=== PATIENT | male | born 1980 | race Caucasian/White ===

== ENCOUNTER 2017-05-06 08:33 | Inpatient (IN) | payer OTHER ==
[2017-05-06] MEDS ORDERED: DEXAMETHASONE 4 MG/ML VIAL IVP ONE (09:00)
[2017-05-06] MEDS ORDERED: HALOPERIDOL LACT 5 MG/ML INJ IVP ONE ×2 (09:00→09:11)
[2017-05-06] MEDS ORDERED: NS 1,000 ML IV ONE ×2 (09:03→09:06)
--- NOTE | 2017-05-06 09:05 | EDPHY ---
H & P Stated Complaint: neck pain and headache this am Time Seen by Provider: 05/06/17 08:51 HPI/ROS: Chief Complaint: Headache HPI: 36-year-old male with no he history of headaches woke this morning with a bifrontal headache and some pain in the right side of his neck. Patient took some Tylenol went back to bed. About an hour woke up with a headache worse. About a 9/10. It is the worst headache of his life. It started when he was sleeping so this not know high rapidly started. Has had some nausea and vomited once. Does have some photophobia. Also bronchitis until cold sweat. No recent illness. 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 Did not have any headache yesterday afternoon. No fevers. No recent falls or trauma. No hearing or vision changes. ROS: 10 point Review of Systems is negative except as noted in the HPI. PMH: Polycystic kidney disease Social History: No smoking, chews tobacco, occasional alcohol, occasional marijuana Family History: Mom has a history of migraine headaches Physical Exam: Gen: Awake, Alert, No Distress HEENT: Nose: no rhinorrhea Eyes: PERRLA, EOMI Mouth: Moist mucosa Neck: Supple, no JVD, no meningismus Chest: nontender, lungs clear to auscultation Heart: S1, S2 normal, no murmur Abd: Soft, non-tender, no guarding Back: no CVA tenderness, no midline tenderness Ext: no edema, non-tender Skin: no rash Neuro: CN II-XII intact, Sensation grossly intact, Strength 5/5 in bilateral upper and lower extremities - Personal History Current Tetanus/Diphtheria Vaccine: Unsure Current Tetanus Diphtheria and Acellular Pertussis (TDAP): Unsure - Medical/Surgical History Hx Renal Disease: Yes Other PMH: Polycystic kidney disease - Social History Smoking Status: Former smoker Constitutional: Initial Vital Signs Temperature (C) 36.5 C 05/06/17 08:46 Heart Rate 66 05/06/17 08:46 Respiratory Rate 16 05/06/17 08:46 Blood Pressure 153/102 H 05/06/17 08:46 O2 Sat (%) 98 05/06/17 08:46 O2 Delivery Mode Room Air Allergies/Adverse Reactions: No Known Allergies Allergy (Verified 05/06/17 08:48) Home Medications: Medication Instructions Recorded None 12/13/09 Medical Decision Making - Diagnostics Imaging Results: Imaging Impressions Head CT 05/06/17 09:00 Impression: Acute subarachnoid hemorrhage epicentered at the central-right paracentral aspect of the pentagonal plate cistern and also extending into the right sylvian fissure, with some mild effacement of the right cerebral sulci, but no evidence of subfalcine or transtentorial herniation. Findings were discussed with Abisai Gonzalez MD at 9:37 am, on 05/06/2017. Imaging: Discussed imaging studies w/ faculty i on call medical assistant Radiologist ED Course/Re-evaluation: 36-year-old male with the worst headache he has ever had. Does not have any trauma or any other predisposing factors. The nature of an intensity is headache is somewhat concerning. He was using her sparing painting yesterday but the headache did not developed until this morning. Will obtain CT scan. Patient has polycystic kidney disease will avoid nonsteroidals at this time. I have ordered Benadryl, Haldol and diphenhydramine, IV fluids and will reassess. CT head shows subarachnoid hemorrhage. Neurosurgery has been paged. Will order CT angiogram of his head. Patient's blood pressure is currently 124/90 Case discussed with JUANCARLOS Louis for Dr. Arias, neurosurgery. They would like the patient transferred to the ICU [facility] directly. With patient to be admitted under the hospitalist service. They would like me to order CT angiogram of the head here. Hospitalist has been paged. Case discussed with Judith Riddle, hospitalist. Patient will be admitted directly to the ICU under Dr. Riley. Patient's blood pressure is 134 systolic at this time. He is no longer nauseated. Order some morphine for his headache. He will go directly to the ICU after CT angiogram here. Critical Care Time: I spent a total of 33 minutes of critical care time in obtaining history, performing a physical exam, bedside monitoring of interventions, collecting and interpreting tests and discussion with consultants but not including time spent performing procedures. - Data Points Laboratory Results: Laboratory Results 05/06/17 09:33 05/06/17 05/06/17 05/06/17 09:33 09:33 09:33 WBC 7.12 10^3/uL 10^3/uL (3.80-9.50) RBC 5.08 10^6/uL 10^6/uL (4.40-6.38) Hgb 15.8 g/dL g/dL (13.7-17.5) Hct 44.2 % % (40.0-51.0) MCV 87.0 fL fL (81.5-99.8) MCH 31.1 pg pg (27.9-34.1) MCHC 35.7 g/dL g/dL (32.4-36.7) RDW 11.3 % L % (11.5-15.2) Plt Count 238 10^3/uL 10^3/uL (150-400) MPV 10.5 fL fL (8.7-11.7) Neut % (Auto) 81.8 % H % (39.3-74.2) Lymph % (Auto) 12.6 % L % (15.0-45.0) [place] % (Auto) 4.5 % % (4.5-13.0) Eos % (Auto) 0.4 % L % (0.6-7.6) Baso % (Auto) 0.4 % % (0.3-1.7) Nucleat RBC Rel Count 0.0 % % (0.0-0.2) Absolute Neuts (auto) 5.82 10^3/uL 10^3/uL (1.70-6.50) Absolute Lymphs (auto) 0.90 10^3/uL L 10^3/uL (1.00-3.00) Absolute Monos (auto) 0.32 10^3/uL 10^3/uL (0.30-0.80) Absolute Eos (auto) 0.03 10^3/uL 10^3/uL (0.03-0.40) Absolute Basos (auto) 0.03 10^3/uL 10^3/uL (0.02-0.10) Absolute Nucleated RBC 0.00 10^3/uL 10^3/uL (0-0.01) Immature Gran % 0.3 % % (0.0-1.1) Immature Gran # 0.02 10^3/uL 10^3/uL (0.00-0.10) PT Pending INR Pending APTT Pending Sodium Pending Potassium Pending Chloride Pending Carbon Dioxide Pending Anion Gap Pending BUN Pending Creatinine Pending Estimated GFR Pending Glucose Pending Calcium Pending Medications Given: Discontinued Medications Dexamethasone (Decadron Injection) 4 mg IVP EDNOW ONE Stop: 05/06/17 09:01 Last Admin: 05/06/17 09:06 Dose: 4 mg Diphenhydramine HCl (Benadryl Injection) 50 mg IVP EDNOW ONE Stop: 05/06/17 09:01 Last Admin: 05/06/17 09:08 Dose: 50 mg Haloperidol Lactate (Haldol Injection) 2.5 mg IVP EDNOW ONE Stop: 05/06/17 09:12 Last Admin: 05/06/17 09:14 Dose: 2.5 mg Sodium Chloride (Ns) 1,000 mls @ 0 mls/hr IV ONCE ONE PRN Reason: Wide Open Stop: 05/06/17 09:04 Last Admin: 05/06/17 09:00 Dose: 1,000 mls Departure - Departure Disposition: [facility] Inpatient Acute Clinical Impression: Subarachnoid hemorrhage Condition: Serious
[2017-05-06 09:41] LABS: % IMMATURE GRANULYOCYTES 0.3 % (0.0-1.1); ABSOLUTE IMMATURE GRANULOCYTES 0.02 10^3/uL (0.00-0.10); ADD DIFF? NO; ADD MORPH? NO; ADD SCAN? NO; ATYPICAL LYMPHOCYTE FLAG 10 (0-99); FRAGMENT RBC FLAG 0 (0-99); HEMATOCRIT 44.2 % (40.0-51.0); HEMOGLOBIN 15.8 g/dL (13.7-17.5); LEFT SHIFT FLG 0 (0-99); LIPEMIA HEMOLYSIS FLAG 90 (0-99); MEAN CELL HEMOGLOBIN 31.1 pg (27.9-34.1); MEAN CELL HEMOGLOBIN CONCENTR. 35.7 g/dL (32.4-36.7); MEAN PLATELET VOLUME 10.5 fL (8.7-11.7); PLATELET CLUMPS FLAG 0 (0-99); PLATELET COUNT 238 10^3/uL (150-400); RED BLOOD CELL COUNT 5.08 10^6/uL (4.40-6.38); RED CELL DISTRIBUTION WIDTH 11.3 % (11.5-15.2)
[2017-05-06 09:52] LABS: APTT 24.2 SEC (23.0-38.0); INR 1.01 (0.83-1.16)
[2017-05-06 09:53] LABS: ANION GAP 11 mEq/L (8-16); CARBON DIOXIDE 21 mEq/l (22-31); CHLORIDE 106 mEq/L (97-110); GLOMERULAR FILTRATION RATE > 60; GLUCOSE 139 mg/dL (70-100); POTASSIUM 4.7 mEq/L (3.5-5.2); SODIUM 138 mEq/L (134-144)
[2017-05-06] MEDS ORDERED: IOPAMIDOL (ISOVUE 370) 100 ML BTL IV ONE (09:56)
[2017-05-06] MEDS ORDERED: PROMETHAZINE HCL 25 MG TAB PO PRN (11:49)
[2017-05-06] MEDS ORDERED: D5W 1/2 NS 1,000 ML IV SCH (12:00)
[2017-05-06] MEDS ORDERED: PANTOPRAZOLE SODIUM 40 MG TAB PO PRN (13:03)
--- NOTE | 2017-05-06 13:03 | PDGENHP ---
History and Physical - Chief Complaint Acute headache - History of Present Illness Primary care provider: Dr. Genaro Vazquez HPI: 36-year-old male presenting with acute headache located in the bilateral frontal area, right greater than left, with associated right neck pain, nausea, 1 episode vomiting, photophobia, with onset of symptoms on the morning of this presentation. It began suddenly, at rest, riders the patient was getting up from his bed. Duration has been persistent thereafter. The symptoms were somewhat alleviated by combination of Benadryl, Haldol, IV fluids, narcotic pain medications received at [facility]. The patient otherwise denies any paresthesias or paresis. He reports that on the day prior to presentation, he had otherwise been feeling well. He reports he drinks approximately 6 beers on the day prior to this presentation, and was using chewing tobacco. History Information - Allergies/Home Medication List Allergies/Adverse Reactions: No Known Allergies Allergy (Verified 05/06/17 08:48) Home Medications: Acetaminophen [Tylenol ES 500 mg (*)] 500 mg PO DAILY PRN 05/06/17 [Last Taken 05/06/17] Omeprazole [Prilosec 20 mg] 20 mg PO DAILY PRN 05/06/17 [Last Taken 05/05/17] I have personally reviewed and updated: family history, medical history, social history, surgical history - Past Medical History Additional medical history: Polycystic kidney disease with resultant hypertension, not presently on KIMBERLY-inhibitor - Surgical History Reports: no pertinent surgical hx - Family History Additional family history: Father and uncle with polycystic kidney disease, both of which on hemodialysis - Social History Smoking Status: Former smoker Tobacco Use: Chew (Daily) Alcohol Use: Other (6 pack regularly, never experienced acute alcohol withdrawal ) Drug Use: Marijuana Additional social history: Works in painting Review of Systems ROS: 10pt was reviewed & negative except for what was stated in HPI & below Neurological: Reports: headache Physical Exam Temp Pulse Resp BP Pulse Ox 36.5 C 60 16 140/92 H 96 05/06/17 08:46 05/06/17 12:27 05/06/17 12:27 05/06/17 12:27 05/06/17 12:27 Constitutional: no apparent distress, appears nourished, not in pain Eyes: PERRL, anicteric sclera, EOMI Ears, Nose, Mouth, Throat: moist mucous membranes, hearing normal, ears appear normal, no oral mucosal ulcers Cardiovascular: regular rate and rhythym, no murmur, rub, or gallop, No edema Respiratory: no respiratory distress, no rales or rhonchi, clear to auscultation Gastrointestinal: normoactive bowel sounds, soft, non-tender abdomen, no palpable masses Genitourinary: no bladder fullness, no bladder tenderness, no renal bruits Skin: other (Many tattoos, no vesicular lesion over his face her forehead) Neurologic: AAOx3, sensation intact bilaterally, CN II-XII Intact, No weakness ( Motor strength 5/5 bilateral upper and lower extremity) Psychiatric: interacting appropriately, not anxious, not encephalopathic, thought process linear Lab Data & Imaging Review 05/06/17 09:33 05/06/17 09:33 WBC 7.12 10^3/uL (3.80-9.50) 05/06/17 09:33 RBC 5.08 10^6/uL (4.40-6.38) 05/06/17 09:33 Hgb 15.8 g/dL (13.7-17.5) 05/06/17 09:33 Hct 44.2 % (40.0-51.0) 05/06/17 09:33 MCV 87.0 fL (81.5-99.8) 05/06/17 09:33 MCH 31.1 pg (27.9-34.1) 05/06/17 09:33 MCHC 35.7 g/dL (32.4-36.7) 05/06/17 09:33 RDW 11.3 % (11.5-15.2) L 05/06/17 09:33 Plt Count 238 10^3/uL (150-400) 05/06/17 09:33 MPV 10.5 fL (8.7-11.7) 05/06/17 09:33 Neut % (Auto) 81.8 % (39.3-74.2) H 05/06/17 09:33 Lymph % (Auto) 12.6 % (15.0-45.0) L 05/06/17 09:33 [place] % (Auto) 4.5 % (4.5-13.0) 05/06/17 09:33 Eos % (Auto) 0.4 % (0.6-7.6) L 05/06/17 09:33 Baso % (Auto) 0.4 % (0.3-1.7) 05/06/17 09:33 Nucleat RBC Rel Count 0.0 % (0.0-0.2) 05/06/17 09:33 Absolute Neuts (auto) 5.82 10^3/uL (1.70-6.50) 05/06/17 09:33 Absolute Lymphs (auto) 0.90 10^3/uL (1.00-3.00) L 05/06/17 09:33 Absolute Monos (auto) 0.32 10^3/uL (0.30-0.80) 05/06/17 09:33 Absolute Eos (auto) 0.03 10^3/uL (0.03-0.40) 05/06/17 09:33 Absolute Basos (auto) 0.03 10^3/uL (0.02-0.10) 05/06/17 09:33 Absolute Nucleated RBC 0.00 10^3/uL (0-0.01) 05/06/17 09:33 Immature Gran % 0.3 % (0.0-1.1) 05/06/17 09:33 Immature Gran # 0.02 10^3/uL (0.00-0.10) 05/06/17 09:33 PT 13.0 SEC (12.0-15.0) 05/06/17 09:33 INR 1.01 (0.83-1.16) 05/06/17 09:33 APTT 24.2 SEC (23.0-38.0) 05/06/17 09:33 Sodium 138 mEq/L (134-144) 05/06/17 09:33 Potassium 4.7 mEq/L (3.5-5.2) 05/06/17 09:33 Chloride 106 mEq/L (97-110) 05/06/17 09:33 Carbon Dioxide 21 mEq/l (22-31) L 05/06/17 09:33 Anion Gap 11 mEq/L (8-16) 05/06/17 09:33 BUN 16 mg/dL (7-23) 05/06/17 09:33 Creatinine 1.0 mg/dL (0.7-1.3) 05/06/17 09:33 Estimated GFR > 60 05/06/17 09:33 Glucose 139 mg/dL (70-100) H 05/06/17 09:33 Calcium 9.0 mg/dL (8.5-10.4) 05/06/17 09:33 Visualized and Interpreted imaging results: Yes Interpretation: Noncontrast head CT demonstrating small subarachnoid hemorrhage on the right side without any herniation Assessment & Plan Assessment: 36-year-old male presenting with acute subarachnoid hemorrhage in the setting of right MCA aneurysm and polycystic kidney disease Plan: 1. Subarachnoid hemorrhage. Acute, new problem this provider, further workup indicated. CT angiograms demonstrating 3.5 x 8.5 x 6 mm aneurysm at the distal M2 of the right MCA, which is the most likely cause, can be associated with polycystic kidney disease -goal systolic blood pressure less than 140, Cardene drip to maintain -q.2 hours neuro checks -discussed with Cruz Hager, neurosurgery service, he will coordinate with his staff regarding further intervention -remain NPO -IV supportive care for any ongoing symptom -close monitoring the step-down unit -will most likely follow noncontrast head CTs to ensure no worsening 2. Polycystic kidney disease. 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 with outpatient labs Diet. NPO with low rate IV fluids Prophylaxis. High risk patient, SCDs, pharmacologic contraindicated given intracranial hemorrhage Code. Full Disposition. Anticipated discharge uncertain this time, anticipated length stay greater than 48 hours warranting inpatient admission status for acute subarachnoid hemorrhage which is high risk, high medical complexity in the setting of right MCA aneurysm. I have also discussed with Judith Riddle, hospitalist provider, she has assigned the patient to me for evaluation.
[2017-05-06] MEDS ORDERED: BUPIVACAINE/EPI 0.25% 30 ML SDV ONE (13:25)
[2017-05-06] MEDS ORDERED: CHLORHEXIDINE GLUC HIBICLENS 118 ML BTL TP ONE (13:25)
[2017-05-06] MEDS ORDERED: THROMBIN (BOVINE) 20,000 UNIT VIAL TP ONE (13:25)
[2017-05-06] MEDS ORDERED: AVITENE POWDER 1 GM JAR TP ONE (13:25)
[2017-05-06] MEDS ORDERED: MANNITOL 20% 100 GM/500 ML BAG IV ONE (13:25)
[2017-05-06] MEDS ORDERED: BACITRACIN ZINC 14.2 GM OINTTUBE TP ONE (13:25)
[2017-05-06] MEDS ORDERED: INDOCYANINE GREEN 25 MG VIAL ONE (13:26)
[2017-05-06] MEDS ORDERED: GENTAMICIN SULFATE 80 MG/2 ML VIAL ONE ×2 (13:26→15:17)
[2017-05-06] MEDS ORDERED: POVIDONE-IODINE 30 GM OINTTUBE TP ONE (13:48)
--- NOTE | 2017-05-06 13:55 | PDANEPAE ---
ANE History of Present Illness 36yo M for Right MCA Aneurysm clipping ANE Past Medical History - Cardiovascular History Hx Hypertension: No - Pulmonary History Hx COPD: No Hx Oxygen in Use at Home: No - Neurologic History Neurologic History Comment: Anersym - Endocrine History Hx Diabetes: No Hypothyroid: No - Renal History Renal History Comment: Polycystic Kidney ANE Patient History - Allergies Allergies/Adverse Reactions: No Known Allergies Allergy (Verified 05/06/17 08:48) - Home Medications Home Medications: Acetaminophen [Tylenol ES 500 mg (*)] 500 mg PO DAILY PRN 05/06/17 [Last Taken 05/06/17] Omeprazole [Prilosec 20 mg] 20 mg PO DAILY PRN 05/06/17 [Last Taken 05/05/17] - Smoking Hx Smoking Status: Former smoker - Alcohol Use Alcohol Use: Other (6 pack regularly, never experienced acute alcohol withdrawal ) ANE Labs/Vital Signs - Labs Result Diagrams: 05/06/17 09:33 05/06/17 09:33 - Vital Signs Blood Pressure: 140/92 Heart Rate: 60 Respiratory Rate: 16 O2 Sat (%): 96 Height: 193.04 cm Weight: 101 kg ANE Physical Exam - Airway Neck exam: FROM Mallampati Score: Class 2 Mouth exam: normal dental/mouth exam - Pulmonary Pulmonary: clear to auscultation - Cardiovascular Cardiovascular: regular rate and rhythym - ASA Status ASA Status: II, E
[2017-05-06] MEDS ORDERED: HYDROmorphONE/DILAUDID 1 MG/ML SYR IVP PRN (13:56)
[2017-05-06] MEDS ORDERED: NALOXONE HCL 0.4 MG/ML INJ IVP PRN ×2 (13:56→16:13)
[2017-05-06] MEDS ORDERED: fentaNYL 100 MCG/2 ML INJ IVP PRN ×3 (13:56→16:13)
[2017-05-06] MEDS ORDERED: ONDANSETRON 4 MG/2 ML VIAL IVP PRN (13:56)
[2017-05-06] MEDS ORDERED: fentaNYL 100 MCG/2 ML INJ ONE (14:14)
[2017-05-06] MEDS ORDERED: PROPOFOL 200 MG/20 ML VIAL ONE (14:14)
[2017-05-06] MEDS ORDERED: CEFAZOLIN 2 GM/DEXTROSE/100 ML BAG IV ONE (14:14)
[2017-05-06] MEDS ORDERED: levETIRAcetam 750 MG in NS 100 ML IV ONE (14:15)
[2017-05-06] MEDS ORDERED: ROCURONIUM 50 MG/5 ML VIAL ONE ×2 (14:15→15:06)
[2017-05-06] MEDS: niMODipine 30 MG CAP PO SCH ×3 (14:19→22:03)
[2017-05-06] MEDS ORDERED: SURGIFLO MATRIX KIT WITH THROMBIN TP ONE (14:46)
--- NOTE | 2017-05-06 14:50 | GCON ---
[f rep st] CONSULTATION CONSULTATION HISTORY AND PHYSICAL. CHIEF COMPLAINT: Acute onset of headache, seen at [facility], diagnosed with acute subarachnoid hemorrhage. Transferred to [facility] for further evaluation and care. HISTORY OF PRESENT ILLNESS: The patient is a 36-year-old male who presented this a.m. with a severe acute onset headache that was located in the bifrontal area, right side greater than left. He had some associated right-sided neck pain, some significant nausea and vomiting as well as photophobia. He states the onset of the symptoms was this a.m. It began suddenly at rest. It increased with getting up from bed. The symptoms were somewhat alleviated with some Benadryl, Haldol, IV fluids, and narcotic pain medications that were received at [facility]. Otherwise, he denied any other symptoms such as numbness, tingling, weakness, or paresthesias. No problems with his speech or mentation. He had a CT scan that showed a traumatic subarachnoid hemorrhage and was transferred over to [facility] [place], and he underwent a CTA which showed a right MCA aneurysm. The patient was seen and evaluated both by myself and Dr. Marlow in the ICU in room 246 at 1300. PAST MEDICAL HISTORY: 1. Polycystic kidney disease. 2. Hypertension. PAST SURGICAL HISTORY: None listed. MEDICATIONS: 1. Tylenol Extra Strength 500 mg p.o. daily as needed. 2. Prilosec 20 mg p.o. daily as needed. ALLERGIES: No known drug allergies. FAMILY HISTORY: Father and uncle with polycystic kidney disease, both of which on hemodialysis. SOCIAL HISTORY: Patient is a former smoker. He does use chewing tobacco daily. He does drink alcohol and uses marijuana. He works in a painting industry. IMMUNIZATIONS: Reported up to date. TRAVEL: No recent travel. REVIEW OF SYSTEMS: Complete review of systems noted in conjunction with above. Noted for the following: Positive for headache. No diplopia, no blurred vision. No loss of visual field. No hearing loss, tinnitus, or vertigo. PULMONARY: No cough, sputum production, hemoptysis, or dyspnea. No pleuritic chest pain. CARDIAC: No chest pain or pressure. No palpitations. GI: No weight loss or gain. No nausea, vomiting, or diarrhea other than noted as above. : Deferred. NEUROLOGIC: The patient denies any syncope, seizures, vertigo, paresthesias, or weakness. PSYCHIATRIC: No suicidal ideality or homicidality. PHYSICAL EXAM: GENERAL: This is an awake, alert, oriented male, in no acute distress. VITAL SIGNS: Most recent blood pressure 140/92, heart rate of 60, MAP of 108, 96% on room air, 16 respirations. Temp this a.m. was 36.5. HEENT: Head is normocephalic, atraumatic. Pupils are equal, round, reactive to light. EOMIs intact. Full visual marquez by confrontation. Ears are patent. Nose is patent. NECK: Soft and supple. No midline tenderness. Full range of motion in flexion, extension, lateral bending, rotation. RESPIRATORY AND CARDIAC: Deferred. ABDOMEN: Soft, nontender. No peritoneal signs. AND RECTAL: Deferred. NEURO: Patient is awake, alert, oriented to name, place, location, date, time, and situation. Memory is intact to immediate past and current events. Speech: No aphasia, dysarthria, dysphonia. Cranial nerves 2- 12 grossly intact. Motor: Patient has 5/5 strength in all muscle groups bilateral upper and lower extremities to include deltoids, biceps, triceps, brachioradialis, wrist flexors and extensors, intravenous therapy nurse intrinsic fingers, iliopsoas , quadriceps, hamstring, plantar flexion, dorsiflexion, EHL testing. Sensation is grossly intact to light touch. Negative straight leg raise. Negative MADHU test. Reflexes are 2+ upper and lower extremities. MEDICAL DECISION MAKING/DIAGNOSTIC STUDIES: Laboratory tests obtained on 2016, show a white count of 7.12 with an H and H 15.8 and 44.2 with a platelet count of 238. Coags 05/06/2017, show a PT of 13.0, INR of 1.01, and a PTT of 24.2. Chemistry on 05/06/2017: Sodium 138, potassium 4.7, chloride 106, CO2 of 21, BUN 16, creatinine 1.0, and glucose of 139. CT scan of the head [facility] 05/06/2017 , at 0900 shows an acute subarachnoid hemorrhage in the central right paracentral aspect of the pentagonal plate cistern and also extending to the right sylvian fissure. There is some mild effacement of the right cerebral sulci. No evidence of subfalcine herniation was noted. A CTA obtained 2016, showed a 3.5 x 8.5 x 6.0 mm aneurysm at the level of the distal M2 segment in the right middle cerebral artery. IMPRESSION: 1. Sudden onset of headache, mainly right-sided. 2. Traumatic subarachnoid hemorrhage. 3. A 3.5 x 8.5 x 6.0 aneurysm of the distal M2 segment of the right middle cerebral artery. PLAN AND DISCUSSION: The patient was seen and evaluated both by myself and Dr. Marlow. Recommendation for surgical intervention was given. The patient understands this and wishes to proceed. He was consented for a right-sided craniotomy for clipping of this M2 aneurysm. He was started on nimodipine, Keppra. We will work on blood pressure control prior to surgery and after surgery as well depending on with Dr. Baeza's recommendations would be. The patient is awake, alert, and oriented. He understands and agrees. We talked about the risks of surgery such as injury to blood vessels, nerves, risk of infection, postoperative complications, coma, , paralysis, stroke, blood clots, heart attacks, pneumonia, need for further surgery. The patient understands this as does his family. All questions and concerns were answered. /[id number]/MODL MTDD
[2017-05-06] MEDS ORDERED: REMIFENTANIL HCL 1 MG VIAL ONE ×3 (14:54→17:20)
[2017-05-06] MEDS ORDERED: PROPOFOL/EMULSION 500 MG/50 ML BOTTLE IV ONE ×3 (15:00→16:56)
[2017-05-06] MEDS ORDERED: ONDANSETRON 4 MG/2 ML VIAL ONE (15:05)
[2017-05-06] MEDS ORDERED: RANITIDINE 50 MG/2 ML VIAL ONE (15:06)
[2017-05-06] MEDS ORDERED: PHENYLEPHRINE HCL 100 MCG/ML SYR ONE (15:17)
[2017-05-06] MEDS ORDERED: PAPAVERINE HCL 60 MG/2 ML SDV ONE (16:56)
[2017-05-06] MEDS ORDERED: BISACODYL 10 MG SUPP PR PRN (17:52)
[2017-05-06] MEDS ORDERED: LACTULOSE 20 GM/30 ML UDCUP PO PRN (17:52)
[2017-05-06] MEDS ORDERED: POLYETHYLENE GLYCOL 3350 17 GM PKT PO PRN (17:52)
[2017-05-06] MEDS ORDERED: MAGNESIUM HYDROXIDE 30 ML UDCUP PO PRN (17:52)
[2017-05-06] MEDS ORDERED: *MD ORDERING ONLY-DEXAMETHASONE TAPER PO SCH (18:00)
--- NOTE | 2017-05-06 18:20 | SOAPPROG ---
SOAP Progress Note Assessment/Plan: Post Op Visit: S: Awake and alert. Pt with incisional pain O: AFVSS/PERRLA/EOMI no droop CN 2-12 grossly intact +lt touch 5/5 BUE/BLE = +cms/nv intact x 4 CDI-dressing place DONOVAN in place A/P: 36 yo male that is s/p right craniotomy for MCA clipping -orders in place -call with any questions or concerns -pt understands and agrees -pt seen by Dr Baeza 05/06/17 18:16 Objective: Vital Signs Temp Pulse Resp BP Pulse Ox 36.7 C 69 15 128/95 H 98 05/06/17 14:00 05/06/17 14:00 05/06/17 14:00 05/06/17 14:00 05/06/17 14:00 05/05/17 05/06/17 05/07/17 05:59 05:59 05:59 Intake Total 1500 Balance 1500 PT 13.0 SEC (12.0-15.0) 05/06/17 09:33 INR 1.01 (0.83-1.16) 05/06/17 09:33 ICD10 Worksheet Patient Problems: Problems Problem Status Onset Aneurysm Acute Subarachnoid hemorrhage Acute - ICD10 Problem Qualifiers (1) Aneurysm
[2017-05-06] MEDS: ONDANSETRON 4 MG/2 ML VIAL IVP PRN (18:35)
--- NOTE | 2017-05-06 18:51 | POSTANESTH ---
Post Anesthetic Evaluation Cardiovascular Status: Normal, Stable Respiratory Status: Normal, Stable Level of Consciousness/Mental Status: Can Participate in Eval, Mildly Sleepy, Arousable Pain Control: Adequate, Prn Tx Ordered Nausea/Vomiting Control: Adequate, Prn Tx Ordered Complications Possibly Related to Anesthesia: None Noted
[2017-05-06] MEDS: FAMOTIDINE 20 MG/NACL 50 ML IV SCH (19:50)
[2017-05-06] MEDS: NS W/ 20 KCl/L 1,000 ML IV SCH (19:53)
[2017-05-06] MEDS: niCARdipine/NACL 200 ML IV SCH (19:53)
[2017-05-06] MEDS: METHOCARBAMOL 750 MG TAB PO PRN (19:54)
[2017-05-06 20:36] LABS: SODIUM 135 mEq/L (134-144)
[2017-05-06] MEDS: ONDANSETRON DISINTEGRATING 4 MG TAB PO PRN (20:49)
[2017-05-06] MEDS: levETIRAcetam 750 MG in NS 100 ML IV SCH (20:57)
[2017-05-06] MEDS: SENNOSIDES/DOCUSATE SODIUM TAB PO SCH (21:53)
[2017-05-06] MEDS ORDERED: SCOPOLAMINE HYDROBROMIDE 1.5 MG PATCH TD ONE (22:30)
--- NOTE | 2017-05-07 00:02 | GOP ---
[f rep st] OPERATIVE REPORT DATE OF OPERATION: SURGEON: Pipo Baeza MD NEUROSURGEON: Pipo Baeza MD SAWMILL TALLY CLERK: Cruz Hager PA-C PREOPERATIVE DIAGNOSIS: Subarachnoid hemorrhage (Warner and Sim 2, Vences grade 3). POSTOPERATIVE DIAGNOSIS: Subarachnoid hemorrhage (Warner and Sim 2, Vences grade 3). PROCEDURE PERFORMED: 1. Right frontotemporal craniotomy. 2. 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 3. Intraoperative indocyanine green angiography with operative microscope. 4. Use of the operative microscope. FINDINGS: Successful clipping of right MCA aneurysm (ruptured). SPECIMENS: There were no specimens. ESTIMATED BLOOD LOSS: 100 cc. INDICATIONS: The patient is a 36-year-old man who awoke this morning with the worst headache of his life. He presented to a free-standing emergency department, where a CT revealed subarachnoid hemor rhage layering in the right sylvian fissure. He was transferred to [facility], where a CT angiogram was performed showing an 8 x 5 x 3 mm right MCA aneurysm with a complex shape at the MCA bifurcation. After complete discussion with the patient and his family, we elected to bring him directly for surgical clipping, given his young age and the location of the aneurysm. DESCRIPTION OF PROCEDURE: After informed consent was obtained from the patient, the patient was bro ught to the operating room, was placed in supine position on the operating table. A formal time-out was performed, identifying the patient by name, medical record number, and date of . Preopera tive antibiotics were given. The endotracheal tube was placed and general endotracheal anesthesia w as smoothly induced. The patient was given preoperative Keppra, Decadron and mannitol. The head wa s placed in Collins pins, and the head was turned slightly to the left side with the malar eminence at the most superior aspect. A standard curvilinear pterional incision was marked, and a small strip of hair was clipped along th e line of the incision. 20 cc of 0.25% Marcaine with epinephrine was infiltrated in the skin for he mostasis. The head was then prepped and draped in the normal sterile fashion. The skin incision wa s made using a 10-blade, and the subcutaneous tissues were dissected using monopolar electrocautery. Care was taken to preserve the superficial temporal artery in case that would be needed for any ki nd of bypass. Next, Wendy clips were placed for hemostasis and the extent of the incision was opene d down through the galea. The temporalis muscle and fascia was then opened in line with the incisio n, and a single myocutaneous flap was retracted anteriorly, exposing the keyhole at the frontal zygo matic process. Once we had this exposure, 3 bur holes were created in standard pterional fashion and a standard pte rional craniotomy flap was turned using the craniotome. The bleeding from the middle meningeal yulisa ry was controlled using bipolar electrocautery. The sphenoid wing was then drilled down flush with the skull base. At this point, the dura was opened in a curvilinear fashion, and flapped down towar d the skull base. The operative microscope was brought on the field, and the remainder of the proce dure was performed under high-power magnification. First, we went subtemporal and opened the optic carotid cistern, releasing some CSF. Next, we came back distally on the sylvian fissure and opened the arachnoid membrane. Once we were in the sylvian fissure, the 1st artery was identified and we followed this more proximally toward the M1. We stay ed along the temporal M2 branch, continuing our dissection down until we could locate the M1 segment . Unfortunately, the M1 segment swung very posterior in the patient; therefore, the only access to the M1 was underneath the aneurysm from the posterior aspect, which did not give us a very great loc ation for temporary clip placement. This allowed us to see the aneurysm, once we saw the junction of the temporal M2 and the M1. The an eurysm was large and somewhat sclerotic, and was completely covered by a small bit of the frontal lo be and was quite adherent to this area. It was quite complicated to carefully dissect this aneurysm , which was adherent to the frontal lobe, but we were able to free this segment of the frontal lobe. Briefly, a self-retaining retractor had to be placed to hold this knuckle of the frontal operculum out of the way. We were then able to identify the frontal M2 branch, which was carefully dissected back toward the aneurysm and its junction with the neck of the aneurysm was visualized. We then po steriorly dissected the dome of the aneurysm where the fresh clot was located, and very carefully se parated this from the frontal lobe without rupture. At this point, we could see 360 degrees around the aneurysm, and it was a quite complicated shape wi th a protrusion from the M1 and lobes anterior and posterior to the M1 as well. A curved Mizuho Sug courtney aneurysm clip was then selected, and this was placed along the superior and posterior aspects of the aneurysm, across the neck. We then inspected the aneurysm, and this clip was not crossing the lobe anterior to the M1; therefore, a fenestrated titanium Sugita aneurysm clip was then selected, a nd the fenestration was placed around the original clip at a 90-degree angle, occluding this lobe. We then again inspected the area, and there was a small dog ear at the superior and posterior aspect where we had placed the original clip, and a 2nd curved Mizuho Sugita clip was placed along the sto ne. This occluded the entire aneurysm. The Doppler was used to confirm flow in both M2s, which were flowing well. An indocyanine green ang iogram was then performed using the operative microscope, which showed good flow in both M2s, and no flow in the aneurysm dome. The dome was still slightly bulbous, however, so a 30-gauge needle was used to puncture the aneurysm dome. There was some brisk bleeding from this location, suggesting th at the aneurysm was still filling. This area of bleeding was coagulated and we then inspected the e ntire area, and there was a small area between the fenestrated clip and the 1st clip where there was a lot of filling. The fenestrated clip was adjusted, and this allowed for complete collapse of the dome. The sclerotic portion of the aneurysm, which still appeared somewhat bulbous, that was adher ent to the frontal lobe, was also punctured to be sure that this was not still filling, and it was n ot. At this point, the wound was copiously irrigated using sterile saline. A few pieces of papaverine-s oaked Gelfoam were placed over the MCA bifurcation, and left for a few minutes and then removed. Th e wound was again copiously irrigated using bacitracin irrigation. A few pieces of Surgicel were pl aced on the base of the sylvian fissure, and the dura was then closed using interrupted 4-0 Nurolon. Some Gelfoam was placed over the dural opening, and the craniotomy flap was plated back in place u FNZ titanium plates and screws. A 10 round DONOVAN drain was then placed in the submuscular spa ce, and then the temporalis muscle and fascia was closed using interrupted 2-0 Vicryl. Again, the w ound was copiously irrigated using bacitracin irrigation. The galea was closed using interrupted 2- 0 Vicryl. The skin was closed using a running 4-0 Monocryl. The hair was washed, sterile dressings were placed. The patient was awakened in the operating room where he was extubated, he was transferred to the PACU in stable condition. There were no operative complications. I was scrubbed and present for the entire procedure. FLUIDS AND URINE OUTPUT: Per the anesthesia record. COMPLICATIONS: There were no operative complications. DRAIN: A subgaleal DONOVAN. IMPLANTED DEVICES: Three titanium Lexiuho Sugita aneurysm clips. /[id number]/MODL
[2017-05-07] MEDS: niCARdipine/NACL 200 ML IV SCH ×2 (00:15→05:48)
[2017-05-07] MEDS: niMODipine 30 MG CAP PO SCH ×6 (02:04→21:18)
[2017-05-07] MEDS: oxyCODONE IR 5 MG TAB PO PRN ×4 (02:04→09:12)
[2017-05-07 04:49] LABS: % IMMATURE GRANULYOCYTES 0.2 % (0.0-1.1); ABSOLUTE IMMATURE GRANULOCYTES 0.03 10^3/uL (0.00-0.10); ADD DIFF? NO; ADD MORPH? NO; ADD SCAN? NO; ATYPICAL LYMPHOCYTE FLAG 0 (0-99); FRAGMENT RBC FLAG 0 (0-99); HEMATOCRIT 44.2 % (40.0-51.0); LEFT SHIFT FLG 0 (0-99); LIPEMIA HEMOLYSIS FLAG 90 (0-99); MEAN CELL HEMOGLOBIN 31.8 pg (27.9-34.1); MEAN CELL HEMOGLOBIN CONCENTR. 36.2 g/dL (32.4-36.7); MEAN CELL VOLUME 87.9 fL (81.5-99.8); MEAN PLATELET VOLUME 10.6 fL (8.7-11.7); PLATELET CLUMPS FLAG 10 (0-99); PLATELET COUNT 255 10^3/uL (150-400); RED BLOOD CELL COUNT 5.03 10^6/uL (4.40-6.38); RED CELL DISTRIBUTION WIDTH 11.6 % (11.5-15.2)
[2017-05-07 05:09] LABS: ANION GAP 12 mEq/L (8-16); CALCIUM 9.4 mg/dL (8.5-10.4); CARBON DIOXIDE 20 mEq/l (22-31); CHLORIDE 103 mEq/L (97-110); CREATININE 0.9 mg/dL (0.7-1.3); GLOMERULAR FILTRATION RATE > 60; GLUCOSE 143 mg/dL (70-100); POTASSIUM 4.3 mEq/L (3.5-5.2); SODIUM 135 mEq/L (134-144)
[2017-05-07] MEDS: NS W/ 20 KCl/L 1,000 ML IV SCH (05:49)
[2017-05-07] MEDS: FAMOTIDINE 20 MG/NACL 50 ML IV SCH (08:17)
[2017-05-07] MEDS: SENNOSIDES/DOCUSATE SODIUM TAB PO SCH ×2 (08:17→21:18)
[2017-05-07] MEDS: levETIRAcetam 750 MG in NS 100 ML IV SCH (08:18)
--- NOTE | 2017-05-07 08:24 | NEUSURGPN ---
Date of Surgery: 05/06/17 Post Op Day: 1 Assessment/Plan: Assessment: 36 yo male that is s/p right craniotomy for MCA clipping POD #1 Plan: -s/p MCA clipping: pt with expected right sided incisional pain -no changes in neuro status -art line in place/cuff BPS as well to keep SBP between 90-160 -CT head pending this am -angiogram -PT/OT/ST on board -CDI -DONOVAN in place -on Keppra -on Nimotop -tapering 3 day course of steroids -d/w pt and family about risks of vasospasm -SQ heparin to start tomorrow -orders in place -call with any questions or concerns -pt understands and agrees -pt to be seen by Dr Baeza later this am 05/06/17 18:16 Subjective: Awake and alert. NAD. Eating/drinking and voiding. No f/c/n/v/d Objective: AFVSS/PERRLA/EOMI no droop CN 2-12 grossly intact +lt touch 5/5 BUE/BLE = +cms/nv intact x 4 CDI-dressing place DONOVAN in place Neuro Check Frequency: per routine Urinary Catheter in Place: No - Physician Discussed Patient with : Aryan Patient Seen by : Aryan Neurosurgery Physical Exam - Vitals, I&O, Labs I and O 05/06/17 05/07/17 05/08/17 05:59 05:59 05:59 Intake Total 3244 Output Total 2625 Balance 619 Weight 101 kg Intake: Oral (ml) 240 IV Intake (ml) 974 IV Infused (ml) 2030 niCARdipine/NACL 200 ml @ 530 Titrate IV CONT NICKOLAS Rx#: [id number] Output: Urine (ml) 2525 Catheter 2525 DONOVAN Drain Output (ml) 100 #1 Right Head Willi 100 Beverly Other: Number of Voids 1 Vital Signs Temp Pulse Resp BP Pulse Ox 36.7 C 69 16 137/92 H 100 05/07/17 08:00 05/07/17 08:00 05/07/17 08:00 05/07/17 07:00 05/07/17 08:00 Laboratory Results 05/07/17 04:33 05/07/17 04:33 ICD10 Worksheet Patient Problems: Problems Problem Status Onset Aneurysm Acute Subarachnoid hemorrhage Acute - ICD10 Problem Qualifiers (1) Aneurysm
[2017-05-07] MEDS: ONDANSETRON 4 MG/2 ML VIAL IVP PRN (09:12)
--- NOTE | 2017-05-07 14:01 | HOSPPROG ---
Hospitalist Progress Note Assessment/Plan: Assessment: 36-year-old male presenting with acute subarachnoid hemorrhage in the setting of right MCA aneurysm and polycystic kidney disease Plan: 1. Subarachnoid hemorrhage. Acute, 2/2 distal R MCA aneurysm, POD#1 clipping/ crani, WBC 15,000 2/2 surgery, Hgb stable 16 -goal systolic blood pressure less than 140, Cardene drip to maintain -q.2 hours neuro checks -per NSGY nimotop for vasospasm, tapering dex, DONOVAN in place -HCT this AM w/o recurrent bleed (personally interpreted) -adjusting pain Rx to morphine IR PO/IV, and, if unsuccessful, will adjust to dilaudid -bowel regimen 2. Polycystic kidney disease. Complicated by hypertensive renal disease, recommend restarting lisinopril 5mg now, but will d/w NSGY as I do not want to incidentally lower BP too far and potentiate vasospasm Diet. Regular Prophylaxis. High risk patient, SCDs, pharmacologic contraindicated given intracranial hemorrhage Code. Full Disposition. Anticipated discharge uncertain, pending stability of above, requiring ongoing SDU care High risk patient for worsening morbidity and/or mortality, secondary to critical issue outlined above. Subjective: Patient reports ongoing right-sided head pain, oxycodone immediate release infected Objective: Vital Signs Temp Pulse Resp BP Pulse Ox 36.8 C 53 L 13 135/72 H 99 05/07/17 12:00 05/07/17 12:00 05/07/17 12:00 05/07/17 12:00 05/07/17 12:00 Laboratory Results 05/07/17 04:33 05/07/17 04:33 05/06/17 05/07/17 05/08/17 05:59 05:59 05:59 Intake Total 3244 Output Total 2625 500 Balance 619 -500 PT 13.0 SEC (12.0-15.0) 05/06/17 09:33 INR 1.01 (0.83-1.16) 05/06/17 09:33 - Physical Exam Constitutional: no apparent distress, appears nourished, uncomfortable, No not in pain ( patient in pain) Cardiovascular: regular rate and rhythym, no murmur, rub, or gallop Respiratory: no respiratory distress, no rales or rhonchi, clear to auscultation Gastrointestinal: soft, non-tender abdomen, no palpable masses, No normoactive bowel sounds ( hypoactive bowel sounds), No distension Neurologic: AAOx3, sensation intact bilaterally, No weakness ( motor strength 5/ 5 bilaterally), No facial droop Psychiatric: interacting appropriately, not anxious, flat affect, other ( slightly slowed cognition, concentration slightly impaired), No agitated ICD10 Worksheet Patient Problems: Problems Problem Status Onset Subarachnoid hemorrhage Acute Aneurysm Acute
[2017-05-07] MEDS: DEXAMETHASONE 4 MG TAB PO SCH ×2 (17:39→23:14)
[2017-05-07] MEDS: levETIRAcetam 500 MG TAB PO SCH (20:23)
[2017-05-07] MEDS: ACETAMINOPHEN 325 MG TAB PO PRN (20:32)
[2017-05-07] MEDS ORDERED: DEXAMETHASONE 4 MG TAB PO SCH (21:00)
[2017-05-08] MEDS: niMODipine 30 MG CAP PO SCH ×6 (01:59→21:23)
[2017-05-08] MEDS: DEXAMETHASONE 4 MG TAB PO SCH ×3 (05:08→20:11)
--- NOTE | 2017-05-08 07:52 | NEUSURGPN ---
Date of Surgery: 05/06/17 Post Op Day: 2 Assessment/Plan: Assessment: 36 yo male that is s/p right craniotomy for MCA clipping POD #2 Plan: -s/p MCA clipping: pt with expected right sided incisional pain-better today -no changes in neuro status -art line removed due to not working/cuff BPS as well to keep SBP between 90-160 -CT head yesterday showed post op changes -angiogram for tomorrow -PT/OT/ST on board -CDI -DONOVAN in place -on Keppra -on Nimotop -tapering 3 day course of steroids-pharmacy missed day #1 -d/w pt and family about risks of vasospasm -SQ heparin to start today -orders in place -call with any questions or concerns -pt understands and agrees -pt to be seen by Dr Baeza 05/06/17 18:16 Subjective: Awake and alert. NAD. Eating/drinking and voiding. No f/c/n/v/d. No neck/ chest/abd or gu complaints. Objective: AFVSS/PERRLA/EOMI no droop CN 2-12 grossly intact +lt touch 5/5 BUE/BLE = +cms/nv intact x 4 CDI-dressing place DONOVAN in place Neuro Check Frequency: per routine Urinary Catheter in Place: No - Physician Discussed Patient with : Aryan Patient Seen by : Aryan Neurosurgery Physical Exam - Vitals, I&O, Labs I and O 05/07/17 05/08/17 05/09/17 05:59 05:59 05:59 Intake Total 3244 3172 Output Total 2625 1120 Balance 619 2052 Weight 101 kg Intake: Oral (ml) 240 1620 IV Intake (ml) 974 IV Infused (ml) 2030 1552 NS W/ 20 KCl/L 1,000 ml @ 1518 100 mls/hr IV CONT NICKOLAS Rx#:[id number] niCARdipine/NACL 200 ml @ 530 34 Titrate IV CONT NICKOLAS Rx#: [id number] Output: Urine (ml) 2525 1050 Catheter 2525 Urinal 1050 DONOVAN Drain Output (ml) 100 70 #1 Right Head Willi 100 70 Beverly Other: Intake Quantity Yes Sufficient Number of Voids 1 Toilet 4 Urinal 1 Vital Signs Temp Pulse Resp BP Pulse Ox 36.8 C 72 16 136/78 H 97 05/08/17 06:00 05/08/17 06:00 05/08/17 06:00 05/08/17 06:00 05/08/17 06:00 Laboratory Results 05/07/17 04:33 05/07/17 04:33 ICD10 Worksheet Patient Problems: Problems Problem Status Onset Aneurysm Acute Subarachnoid hemorrhage Acute - ICD10 Problem Qualifiers (1) Aneurysm
[2017-05-08] MEDS: HEPARIN 5,000 UNIT/0.5 ML SYR SC SCH ×2 (09:08→20:11)
[2017-05-08] MEDS: levETIRAcetam 500 MG TAB PO SCH ×2 (09:08→20:11)
[2017-05-08] MEDS: SENNOSIDES/DOCUSATE SODIUM TAB PO SCH ×2 (09:08→20:11)
[2017-05-08] MEDS: oxyCODONE IR 5 MG TAB PO PRN (12:41)
--- NOTE | 2017-05-08 12:57 | GPN ---
[f rep st] PROCEDURE NOTE PROCEDURE: After reviewing the output of the DONOVAN with Dr. Aryan rajput a.mLester, he requested that we remove the DONOVAN. SUMMARY: The area was cleaned with chlorhexadine x 2. The securing stitch was removed. The drain was removed completely intact, and 2 susan were placed to facilitate a watertight closure to the exit site. Then pressure was held on the area for approximately 5 minutes, and then it was rechecked over the course of 10 minutes, and no drainage noted. It was dry. The patient tolerated the procedure fine. /[id number]/MODL MTDD
--- NOTE | 2017-05-08 18:17 | HOSPPROG ---
Hospitalist Progress Note Assessment/Plan: Assessment: 36-year-old male presenting with acute subarachnoid hemorrhage in the setting of right MCA aneurysm and polycystic kidney disease Plan: 1. Subarachnoid hemorrhage. Acute, 2/2 distal R MCA aneurysm, POD#2 clipping/ crani, DONOVAN removed this afternoon -goal systolic blood pressure less than 140, Cardene drip if needed to maintain -neuro checks -per NSGY nimotop for vasospasm, tapering dex, keppra seiz ppx -Angio of affected area planned for tomorrow AM -adjusted pain Rx to morphine IR PO/IV, successful -bowel regimen 2. Polycystic kidney disease. Complicated by hypertensive renal disease, recommend restarting lisinopril 5mg when stable post-op, but will d/w NSGY as I do not want to incidentally lower BP too far and potentiate vasospasm Diet. Regular Prophylaxis. High risk patient, SCDs, pharmacologic contraindicated given intracranial hemorrhage Code. Full Disposition. Anticipated discharge uncertain, pending stability of above, requiring ongoing SDU care Subjective: reports pain much improved w/ morphine PO, no bowel movement as yet Objective: Vital Signs Temp Pulse Resp BP Pulse Ox 36.6 C 55 L 13 156/85 H 96 05/08/17 16:00 05/08/17 16:00 05/08/17 16:00 05/08/17 16:00 05/08/17 16:00 Laboratory Results 05/07/17 04:33 05/07/17 04:33 05/07/17 05/08/17 05/09/17 05:59 05:59 05:59 Intake Total 3244 3172 Output Total 2625 1120 Balance 619 2052 PT 13.0 SEC (12.0-15.0) 05/06/17 09:33 INR 1.01 (0.83-1.16) 05/06/17 09:33 - Physical Exam Constitutional: no apparent distress, appears nourished, not in pain, No uncomfortable Cardiovascular: regular rate and rhythym, no murmur, rub, or gallop, No edema Respiratory: no respiratory distress, no rales or rhonchi, clear to auscultation Gastrointestinal: normoactive bowel sounds, soft, non-tender abdomen, no palpable masses, No distension Skin: other (many tattoos, no erythema/induration/tenderness around surg site on scalp) Neurologic: AAOx3, sensation intact bilaterally, No weakness, No facial droop Psychiatric: interacting appropriately, not anxious, not encephalopathic, thought process linear ICD10 Worksheet Patient Problems: Problems Problem Status Onset Subarachnoid hemorrhage Acute Aneurysm Acute
[2017-05-08] MEDS: ACETAMINOPHEN 325 MG TAB PO PRN (20:11)
[2017-05-08] MEDS: MAG HYDROX/AL HYDROX/SIMETH 30 ML UDCUP PO PRN (20:20)
[2017-05-09] MEDS: niMODipine 30 MG CAP PO SCH ×6 (02:08→21:21)
[2017-05-09] MEDS: HEPARIN 5,000 UNIT/0.5 ML SYR SC SCH ×2 (08:11→21:27)
[2017-05-09] MEDS: SENNOSIDES/DOCUSATE SODIUM TAB PO SCH ×3 (08:11→21:21)
[2017-05-09] MEDS: oxyCODONE IR 5 MG TAB PO PRN ×2 (08:20→14:17)
[2017-05-09] MEDS: levETIRAcetam 500 MG TAB PO SCH ×2 (08:21→21:22)
[2017-05-09] MEDS: DEXAMETHASONE 4 MG TAB PO SCH (09:01)
--- NOTE | 2017-05-09 09:16 | NEUSURGPN ---
Assessment/Plan: Assessment: 36 yo male that is s/p right craniotomy for MCA clipping POD #3 Plan: -s/p MCA clipping: pt with expected right sided incisional pain-better today- dressing removed -no changes in neuro status -Use cuff BPS as well to keep SBP between 90-160 -CT head postop showed post op changes -Diagnostic angiogram scheduled for today at 1pm- NPO and consents signed -PT/OT/ST on board -DONOVAN removed -on Keppra -on Nimotop -tapering 3 day course of steroids-pharmacy missed day #1 -d/w pt and family about risks of vasospasm -SQ heparin on board for DVT prophylaxis -call with any questions or concerns -pt to be seen by Dr Baeza Subjective: Patient feeling good this morning, has mild headache after staple removal this morning. Ready for angiogram later today. Objective: NAD, VSS CN II-XII grossly intact No facial droop, speech fluent PERRL, EOMI GREENE X4 Incision c/d/i- bacitracin and dried blood on incision - Physician Discussed Patient with : Aryan Neurosurgery Physical Exam - Vitals, I&O, Labs I and O 05/08/17 05/09/17 05/10/17 05:59 05:59 05:59 Intake Total 3172 0 Output Total 1120 Balance 2051 2079 Intake: Oral (ml) 1620 2080 IV Infused (ml) 1552 NS W/ 20 KCl/L 1,000 ml @ 1518 100 mls/hr IV CONT NICKOLAS Rx#:[id number] niCARdipine/NACL 200 ml @ 34 Titrate IV CONT NICKOLAS Rx#: [id number] Output: Urine (ml) 1050 Urinal 1050 DONOVAN Drain Output (ml) 70 #1 Right Head Willi 70 Beverly Other: Intake Quantity Yes No: NPO Sufficient Number of Voids Toilet 4 1 Urinal 1 Vital Signs Temp Pulse Resp BP Pulse Ox 36.8 C 44 L 9 L 137/86 H 99 05/09/17 04:00 05/09/17 08:00 05/09/17 08:00 05/09/17 08:00 05/09/17 08:00 Laboratory Results 05/07/17 04:33 05/07/17 04:33 ICD10 Worksheet Patient Problems: Problems Problem Status Onset Aneurysm Acute Subarachnoid hemorrhage Acute
[2017-05-09] MEDS ORDERED: MIDAZOLAM 2 MG/2 ML VIAL ONE (13:21)
[2017-05-09] MEDS ORDERED: fentaNYL 100 MCG/2 ML INJ ONE (13:21)
[2017-05-09] MEDS ORDERED: IOPAMIDOL (ISOVUE-300) 100 ML BTL ONE (13:59)
--- NOTE | 2017-05-09 14:55 | HOSPPROG ---
Hospitalist Progress Note Assessment/Plan: 37 yo M with PMH of PKD presenting with SAH in setting of R MCA aneursym # Subarachnoid hemorrhage. 2/2 distal R MCA aneurysm now s/p crani and clipping of MCA, DONOVAN removed this afternoon -goal systolic blood pressure less than 140 -per NSGY nimotop for vasospasm, tapering dex, keppra seiz ppx -Angio of affected area planned today -pain controlled on PRN morphine # Polycystic kidney disease. Complicated by hypertensive renal disease, recommend restarting lisinopril 5mg when stable post-op Diet. Regular Prophylaxis. High risk patient, SCDs, pharmacologic contraindicated given intracranial hemorrhage Code. Full Disposition. Anticipated discharge uncertain, pending stability of above, requiring ongoing SDU care Subjective: no significant overnight events, patient is currently feeling well other than hungry (has been NPO for angiogram) Objective: Vital Signs Temp Pulse Resp BP Pulse Ox 36.8 C 46 L 9 L 135/87 H 94 05/09/17 04:00 05/09/17 12:00 05/09/17 12:00 05/09/17 12:00 05/09/17 12:00 Laboratory Results 05/07/17 04:33 05/07/17 04:33 05/08/17 05/09/17 05/10/17 05:59 05:59 05:59 Intake Total 3170 Output Total 1120 Balance 2051 2079 PT 13.0 SEC (12.0-15.0) 05/06/17 09:33 INR 1.01 (0.83-1.16) 05/06/17 09:33 awake alert nad anicteric op clear rrr no mrg cta b soft nt nd no cce warm dry well perfused oriented appropriate ICD10 Worksheet Patient Problems: Problems Problem Status Onset Subarachnoid hemorrhage Acute Aneurysm Acute
[2017-05-09] MEDS: ACETAMINOPHEN 325 MG TAB PO PRN (19:52)
[2017-05-10] MEDS: niMODipine 30 MG CAP PO SCH ×6 (02:04→21:51)
[2017-05-10] MEDS: ACETAMINOPHEN 325 MG TAB PO PRN ×2 (02:04→06:05)
[2017-05-10] MEDS: ONDANSETRON 4 MG/2 ML VIAL IVP PRN (03:52)
[2017-05-10] MEDS: SENNOSIDES/DOCUSATE SODIUM TAB PO SCH ×2 (07:48→20:27)
[2017-05-10] MEDS: oxyCODONE IR 5 MG TAB PO PRN ×2 (07:49→14:52)
[2017-05-10] MEDS: HEPARIN 5,000 UNIT/0.5 ML SYR SC SCH ×2 (07:49→20:28)
[2017-05-10] MEDS: levETIRAcetam 500 MG TAB PO SCH ×2 (07:50→20:28)
--- NOTE | 2017-05-10 07:59 | NEUSURGPN ---
Assessment/Plan: Assessment: 36 yo male that is s/p right craniotomy for MCA clipping POD #4 Plan: -s/p MCA clipping: pt with expected right sided incisional pain- Headache overnight, improved with morphine. -no changes in neuro status, will hold on repeat imaging at this time unless change in neuro exam -Use cuff BPS as well to keep SBP between 90-180 -CT head postop showed post op changes -PT/OT/ST on board -Continue Keppra -Continue Nimotop for a 21 day course -tapering 3 day course of steroids-pharmacy missed day #1 -d/w pt and family about risks of vasospasm -SQ heparin on board for DVT prophylaxis -call with any questions or concerns -pt to be seen by Dr Baeza Subjective: "Splitting" headache over night, currently with some mild pain over incision site Objective: NAD A&Ox3 CN II-XII grossly intact. EOMI, PERRLA. MAEx4 5/5 and equal in BUE and BLE. - Physician Discussed Patient with Dr.: Baeza Neurosurgery Physical Exam - Vitals, I&O, Labs I and O 05/09/17 05/10/17 05/11/17 05:59 05:59 05:59 Intake Total 2080 500 Output Total 300 Balance 2080 200 Intake: Oral (ml) 0 500 Output: Urine (ml) 300 Toilet 300 Other: Intake Quantity No: NPO Sufficient Number of Voids Toilet 1 2 Vital Signs Temp Pulse Resp BP Pulse Ox 36.8 C 44 L 14 121/79 H 95 05/10/17 03:57 05/10/17 06:00 05/10/17 06:00 05/10/17 06:00 05/10/17 06:00 Laboratory Results 05/07/17 04:33 05/07/17 04:33 ICD10 Worksheet Patient Problems: Problems Problem Status Onset Aneurysm Acute Subarachnoid hemorrhage Acute
[2017-05-10] MEDS: MAG HYDROX/AL HYDROX/SIMETH 30 ML UDCUP PO PRN (08:19)
--- NOTE | 2017-05-10 12:06 | HOSPPROG ---
Hospitalist Progress Note Assessment/Plan: 37 yo M with PMH of PKD presenting with SAH in setting of R MCA aneursym # Subarachnoid hemorrhage. 2/2 distal R MCA aneurysm now s/p crani and clipping of MCA, DONOVAN removed this afternoon -goal systolic blood pressure less than 140 -per NSGY nimotop for vasospasm, tapering dex, keppra seiz ppx -cont q2h neurochecks per neurosurg -pain controlled on PRN morphine # Polycystic kidney disease. Complicated by hypertensive renal disease, recommend restarting lisinopril 5mg when stable post-op Diet. Regular Prophylaxis. High risk patient, SCDs, pharmacologic contraindicated given intracranial hemorrhage Code. Full Disposition. Anticipated discharge uncertain, pending stability of above, requiring ongoing SDU care Subjective: Pt feels well. Denies villanueva or vision changes. No CP or SOB. Ambulating, eating well. Objective: Vital Signs Temp Pulse Resp BP Pulse Ox 36.4 C 46 L 13 120/84 H 93 05/10/17 08:00 05/10/17 10:00 05/10/17 10:00 05/10/17 10:00 05/10/17 10:00 Laboratory Results 05/07/17 04:33 05/07/17 04:33 05/09/17 05/10/17 05/11/17 05:59 05:59 05:59 Intake Total 2080 500 Output Total 300 Balance 2080 200 PT 13.0 SEC (12.0-15.0) 05/06/17 09:33 INR 1.01 (0.83-1.16) 05/06/17 09:33 - Physical Exam Constitutional: no apparent distress Eyes: PERRL Ears, Nose, Mouth, Throat: moist mucous membranes Cardiovascular: regular rate and rhythym Respiratory: no respiratory distress Gastrointestinal: normoactive bowel sounds, soft, non-tender abdomen Skin: warm Musculoskeletal: full muscle strength Neurologic: AAOx3 Psychiatric: interacting appropriately ICD10 Worksheet Patient Problems: Problems Problem Status Onset Aneurysm Acute Subarachnoid hemorrhage Acute
[2017-05-10] MEDS: DIAZEPAM 5 MG TAB PO PRN (15:56)
[2017-05-10] MEDS: PROMETHAZINE HCL 25 MG/ML INJ IVP PRN (21:54)
[2017-05-11] MEDS: oxyCODONE IR 5 MG TAB PO PRN ×4 (00:01→15:03)
[2017-05-11] MEDS: niMODipine 30 MG CAP PO SCH ×6 (01:56→21:58)
--- NOTE | 2017-05-11 08:23 | SOAPPROG ---
BRANDEN Progress Note Assessment/Plan: Assessment: 36 yo male that is s/p right craniotomy for MCA clipping POD #5 Plan: -s/p MCA clipping: pt with expected right sided incisional pain- Headaches improving -- added ibuprofen to pain regimen today -no changes in neuro status, will hold on repeat imaging at this time unless change in neuro exam -Use cuff BPS as well to keep SBP between 90-180 -post-op angiogram showed no residual aneurysm and no significant vasospasm -will get followup CBC/BMP today -PT/OT/ST on board -Continue Keppra -Continue Nimotop for a 21 day course -d/w pt and family about risks of vasospasm -SQ heparin on board for DVT prophylaxis -call with any questions or concerns 05/11/17 08:20 05/11/17 08:22 Subjective: no major complaints Objective: Vital Signs Temp Pulse Resp BP Pulse Ox 36.7 C 54 L 11 L 112/71 99 05/10/17 20:00 05/11/17 06:00 05/11/17 06:00 05/11/17 06:00 05/11/17 06:00 Laboratory Results 05/07/17 04:33 05/07/17 04:33 05/10/17 05/11/17 05/12/17 05:59 05:59 05:59 Intake Total 500 1500 Output Total 300 Balance 200 1500 PT 13.0 SEC (12.0-15.0) 05/06/17 09:33 INR 1.01 (0.83-1.16) 05/06/17 09:33 doing well, AAOx3, strength full, no drift, sensation intact, wounds c/d/i - Pending Discharge Pending Discharge Within 24 Hours: No Pending Discharge Within 48 Hours: No ICD10 Worksheet Patient Problems: Problems Problem Status Onset Aneurysm Acute Subarachnoid hemorrhage Acute
[2017-05-11] MEDS: HEPARIN 5,000 UNIT/0.5 ML SYR SC SCH ×2 (08:42→20:26)
[2017-05-11] MEDS: levETIRAcetam 500 MG TAB PO SCH ×2 (08:43→20:25)
[2017-05-11 09:58] LABS: HEMATOCRIT 31.5 % (40.0-51.0); HEMOGLOBIN 11.2 g/dL (13.7-17.5); MEAN CELL HEMOGLOBIN 31.7 pg (27.9-34.1); MEAN CELL HEMOGLOBIN CONCENTR. 35.6 g/dL (32.4-36.7); MEAN CELL VOLUME 89.2 fL (81.5-99.8); RED BLOOD CELL COUNT 3.53 10^6/uL (4.40-6.38); RED CELL DISTRIBUTION WIDTH 11.5 % (11.5-15.2)
[2017-05-11] MEDS: IBUPROFEN 600 MG TAB PO PRN (10:03)
[2017-05-11 10:11] LABS: ANION GAP 9 mEq/L (8-16); CALCIUM 7.9 mg/dL (8.5-10.4); CARBON DIOXIDE 24 mEq/l (22-31); CHLORIDE 103 mEq/L (97-110); CREATININE 0.8 mg/dL (0.7-1.3); GLOMERULAR FILTRATION RATE > 60; GLUCOSE 90 mg/dL (70-100); POTASSIUM 3.4 mEq/L (3.5-5.2); SODIUM 136 mEq/L (134-144)
[2017-05-11] MEDS ORDERED: POTASSIUM CL 20 MEQ TAB PO ONE (14:08)
--- NOTE | 2017-05-11 14:13 | HOSPPROG ---
Hospitalist Progress Note Assessment/Plan: 37 yo M with PMH of PKD presenting with SAH in setting of R MCA aneursym # Subarachnoid hemorrhage. 2/2 distal R MCA aneurysm now s/p crani and clipping of MCA 05/06, DONOVAN since removed -goal systolic blood pressure less than 140 -per NSGY nimotop for vasospasm x21 d -keppra for seizure pplx -cont q2h neurochecks per neurosurg to monitor for vasospasm -pain controlled on PRN morphine # Polycystic kidney disease. Complicated by hypertensive renal disease. -consider lisinopril 5 mg daily when stable post-op Diet. Regular Prophylaxis. NICKOLAS per neurosurg Code. Full Disposition. Anticipated discharge uncertain, pending stability of above, requiring ongoing SDU care Subjective: Pt feels ok, reports mild headache, +photosensitivity. No N/V. No vision changes. Taking po, ambulating. Objective: Vital Signs Temp Pulse Resp BP Pulse Ox 36.8 C 53 L 12 135/93 H 98 05/11/17 12:00 05/11/17 14:00 05/11/17 14:00 05/11/17 14:00 05/11/17 14:00 Laboratory Results 05/11/17 08:50 05/11/17 08:50 05/10/17 05/11/17 05/12/17 05:59 05:59 05:59 Intake Total 500 1500 Output Total 300 Balance 200 1500 PT 13.0 SEC (12.0-15.0) 05/06/17 09:33 INR 1.01 (0.83-1.16) 05/06/17 09:33 - Physical Exam Constitutional: no apparent distress Eyes: PERRL Ears, Nose, Mouth, Throat: moist mucous membranes Cardiovascular: regular rate and rhythym Respiratory: no respiratory distress Gastrointestinal: soft, non-tender abdomen Skin: warm Musculoskeletal: full muscle strength Neurologic: AAOx3 Psychiatric: interacting appropriately ICD10 Worksheet Patient Problems: Problems Problem Status Onset Aneurysm Acute Subarachnoid hemorrhage Acute
[2017-05-11] MEDS: ACETAMINOPHEN 325 MG TAB PO PRN (20:24)
[2017-05-11] MEDS: SENNOSIDES/DOCUSATE SODIUM TAB PO SCH (20:25)
[2017-05-12] MEDS: niMODipine 30 MG CAP PO SCH ×6 (02:05→21:10)
[2017-05-12] MEDS: oxyCODONE IR 5 MG TAB PO PRN ×4 (02:07→21:20)
--- NOTE | 2017-05-12 08:00 | SOAPPROG ---
BRANDEN Progress Note Assessment/Plan: Assessment: 36 yo male that is s/p right craniotomy for MCA clipping POD #6 Plan: -s/p MCA clipping: pt with expected right sided incisional pain- Headaches improving -no changes in neuro status, will get CT tomorrow and if this is OK, will transfer to floor -Use cuff BPS as well to keep SBP between 90-180 -will need lisinopril 5mg after about 3 weeks for polycystic kidney disease, but would wait until vasospasm resolved -post-op angiogram showed no residual aneurysm and no significant vasospasm -labs look fine, sodium 136 -PT/OT/ST on board -Continue Keppra -Continue Nimotop for a 21 day course -d/w pt and family about risks of vasospasm -SQ heparin on board for DVT prophylaxis -call with any questions or concerns 05/11/17 08:20 05/11/17 08:22 05/12/17 07:58 Subjective: no major complaints. intermittant headache Objective: Vital Signs Temp Pulse Resp BP Pulse Ox 36.8 C 12 L 12 127/69 H 93 05/11/17 20:00 05/12/17 06:00 05/12/17 06:00 05/12/17 06:00 05/12/17 06:00 Laboratory Results 05/11/17 08:50 05/11/17 08:50 05/11/17 05/12/17 05/13/17 05:59 05:59 05:59 Intake Total 1500 2300 Balance 1500 2300 PT 13.0 SEC (12.0-15.0) 05/06/17 09:33 INR 1.01 (0.83-1.16) 05/06/17 09:33 AAOx3, strength full, no drift, sensation intact, wound c/d/i - Pending Discharge Pending Discharge Within 24 Hours: No Pending Discharge Within 48 Hours: No ICD10 Worksheet Patient Problems: Problems Problem Status Onset Aneurysm Acute Subarachnoid hemorrhage Acute
[2017-05-12] MEDS: levETIRAcetam 500 MG TAB PO SCH ×2 (09:22→21:11)
[2017-05-12] MEDS: HEPARIN 5,000 UNIT/0.5 ML SYR SC SCH ×2 (09:22→21:13)
[2017-05-12] MEDS: SENNOSIDES/DOCUSATE SODIUM TAB PO SCH ×2 (09:22→21:10)
[2017-05-12] MEDS: ONDANSETRON 4 MG/2 ML VIAL IVP PRN (10:31)
--- NOTE | 2017-05-12 11:39 | HOSPPROG ---
Hospitalist Progress Note Assessment/Plan: 37 yo M with PMH of PKD presenting with SAH in setting of R MCA aneursym # Subarachnoid hemorrhage. 2/2 distal R MCA aneurysm now s/p crani and clipping of MCA 05/06, DONOVAN since removed. Increase, severe headache this am not responsive to medication. -STAT CT head no new bleed, actually a bit improved -goal systolic blood pressure less than 140 -per NSGY nimotop for vasospasm x21 d -keppra for seizure pplx -cont q2h neurochecks per neurosurg to monitor for vasospasm -pain controlled on PRN morphine # Polycystic kidney disease. Complicated by hypertensive renal disease. -likely initiate lisinopril after 3 weeks of nimotop Diet. Regular Prophylaxis. NICKOLAS per neurosurg Code. Full Disposition. Anticipated discharge uncertain, pending stability of above, requiring ongoing SDU care Subjective: Pt c/o severe headache 04/25 after Oxycodone and morphine. No vision changes or neurodeficits. +photosensitivity. Eating, ambulating. Objective: Vital Signs Temp Pulse Resp BP Pulse Ox 36.4 C 57 L 12 141/81 H 99 05/12/17 08:00 05/12/17 10:00 05/12/17 10:00 05/12/17 10:00 05/12/17 10:00 Laboratory Results 05/11/17 08:50 05/11/17 08:50 05/11/17 05/12/17 05/13/17 05:59 05:59 05:59 Intake Total 1500 2300 Balance 1500 2300 PT 13.0 SEC (12.0-15.0) 05/06/17 09:33 INR 1.01 (0.83-1.16) 05/06/17 09:33 - Physical Exam Constitutional: no apparent distress Eyes: PERRL Ears, Nose, Mouth, Throat: moist mucous membranes Cardiovascular: regular rate and rhythym Respiratory: no respiratory distress Gastrointestinal: normoactive bowel sounds Skin: warm Musculoskeletal: full muscle strength Neurologic: AAOx3, other (no neurodeficits) Psychiatric: interacting appropriately ICD10 Worksheet Patient Problems: Problems Problem Status Onset Aneurysm Acute Subarachnoid hemorrhage Acute
[2017-05-12] MEDS: IBUPROFEN 600 MG TAB PO PRN (12:24)
[2017-05-12] MEDS: ACET/CAFFEINE/BUTA FIORICET 1 EACH TAB PO PRN (16:48)
[2017-05-13] MEDS: niMODipine 30 MG CAP PO SCH ×6 (01:29→22:36)
[2017-05-13] MEDS: ACET/CAFFEINE/BUTA FIORICET 1 EACH TAB PO PRN ×3 (01:30→17:34)
[2017-05-13] MEDS: ONDANSETRON DISINTEGRATING 4 MG TAB PO PRN (05:24)
[2017-05-13] MEDS: oxyCODONE IR 5 MG TAB PO PRN ×3 (05:24→20:18)
[2017-05-13] MEDS: ACETAMINOPHEN 325 MG TAB PO PRN (06:19)
[2017-05-13] MEDS: SENNOSIDES/DOCUSATE SODIUM TAB PO SCH ×2 (09:25→20:17)
[2017-05-13] MEDS: IBUPROFEN 600 MG TAB PO PRN ×2 (09:25→17:34)
[2017-05-13] MEDS: levETIRAcetam 500 MG TAB PO SCH ×2 (09:26→20:15)
[2017-05-13] MEDS: HEPARIN 5,000 UNIT/0.5 ML SYR SC SCH ×2 (09:26→20:20)
[2017-05-13] MEDS: DIAZEPAM 5 MG TAB PO PRN ×2 (09:35→20:18)
--- NOTE | 2017-05-13 11:11 | NEUSURGPN ---
Assessment/Plan: Assessment: 36 yo male that is s/p right craniotomy for MCA clipping POD #7 Plan: -s/p MCA clipping: pt with expected right sided incisional pain- Headaches improving. Can try burst of steroids later if they continue. - Has some fluid collection near incision-can be expected after crani tight compression cap can help with this and to remain sitting up for most of the day. -no changes in neuro status head CT this morning stable -Use cuff BPS as well to keep SBP between 90-180 -will need lisinopril 5mg after about 3 weeks for polycystic kidney disease, but would wait until vasospasm resolved -post-op angiogram showed no residual aneurysm and no significant vasospasm -Na checks cancelled -PT/OT/ST on board -Continue Keppra -Continue Nimotop for a 21 day course -Ok to transfer to floor today -SQ heparin on board for DVT prophylaxis -call with any questions or concerns -Patient seen by Dr. Baeza as well Subjective: Patient stats headaches are better than yesterday but still there. Feels good on his feet. Voiding well. Objective: NAD, VSS PERRL, EOMI CN II-XII grossly intact NO droop INcision c/d/i- small fluid collection near incision- no erythema or tenderness GREENE X 4 Sensation intact - Physician Discussed Patient with Dr.: Baeza Patient Seen by : Aryan Neurosurgery Physical Exam - Vitals, I&O, Labs I and O 05/12/17 05/13/17 05/14/17 05:59 05:59 05:59 Intake Total 2300 500 550 Output Total 500 Balance 2300 0 550 Intake: Oral (ml) 2300 500 550 Output: Urine (ml) 500 Toilet 500 Other: Intake Quantity Yes Sufficient Number of Voids Toilet 3 1 1 Vital Signs Temp Pulse Resp BP Pulse Ox 37 C 58 L 17 116/72 99 05/13/17 10:00 05/13/17 10:00 05/13/17 10:00 05/13/17 10:00 05/13/17 10:00 Laboratory Results 05/11/17 08:50 05/11/17 08:50 ICD10 Worksheet Patient Problems: Problems Problem Status Onset Aneurysm Acute Subarachnoid hemorrhage Acute
--- NOTE | 2017-05-13 11:22 | HOSPPROG ---
Hospitalist Progress Note Assessment/Plan: 37 yo M with PMH of PKD presenting with SAH in setting of R MCA aneursym # Subarachnoid hemorrhage. 2/2 distal R MCA aneurysm now s/p crani and clipping of MCA 05/06, DONOVAN since removed. Increase, severe headache this am not responsive to medication. -STAT CT head yest no new bleed, actually a bit improved -goal systolic blood pressure less than 140 -per NSGY nimotop for vasospasm x21 d -keppra for seizure pplx -cont q2h neurochecks per neurosurg to monitor for vasospasm -pain controlled on PRN morphine # Polycystic kidney disease. Complicated by hypertensive renal disease. -likely initiate lisinopril after 3 weeks of nimotop Diet. Regular Prophylaxis. NICKOLAS per neurosurg Code. Full Disposition. cont inpt, transfer to med surg per neurosurg Subjective: Pt feels ok. Headache improved today. Ambulating, eating / drinking well. Objective: Vital Signs Temp Pulse Resp BP Pulse Ox 37 C 58 L 17 116/72 99 05/13/17 10:00 05/13/17 10:00 05/13/17 10:00 05/13/17 10:00 05/13/17 10:00 Laboratory Results 05/11/17 08:50 05/11/17 08:50 05/12/17 05/13/17 05/14/17 05:59 05:59 05:59 Intake Total 2300 500 550 Output Total 500 Balance 2300 0 550 PT 13.0 SEC (12.0-15.0) 05/06/17 09:33 INR 1.01 (0.83-1.16) 05/06/17 09:33 - Physical Exam Constitutional: no apparent distress Eyes: PERRL Ears, Nose, Mouth, Throat: moist mucous membranes Cardiovascular: regular rate and rhythym Respiratory: no respiratory distress Gastrointestinal: normoactive bowel sounds, soft, non-tender abdomen Skin: warm Musculoskeletal: full muscle strength Neurologic: AAOx3 Psychiatric: interacting appropriately ICD10 Worksheet Patient Problems: Problems Problem Status Onset Aneurysm Acute Subarachnoid hemorrhage Acute
[2017-05-14] MEDS: ACET/CAFFEINE/BUTA FIORICET 1 EACH TAB PO PRN ×3 (02:26→17:42)
[2017-05-14] MEDS: niMODipine 30 MG CAP PO SCH ×6 (02:26→23:00)
[2017-05-14] MEDS: IBUPROFEN 600 MG TAB PO PRN ×3 (02:26→17:03)
[2017-05-14] MEDS: oxyCODONE IR 5 MG TAB PO PRN ×4 (02:30→22:29)
--- NOTE | 2017-05-14 07:11 | NEUSURGPN ---
Assessment/Plan: Assessment: 36 yo male that is s/p right craniotomy for MCA clipping POD #8 Plan: -s/p MCA clipping: pt with expected right sided incisional pain- Headaches improving slightly. Can try burst of steroids later if they continue. Will see how he does today. - Has some fluid collection near incision-can be expected after crani tight compression cap can help with this and to remain sitting up for most of the day. -no changes in neuro status head CT yesterday stable -Use cuff BPS as well to keep SBP between 90-180 -will need lisinopril 5mg after about 3 weeks for polycystic kidney disease, but would wait until vasospasm resolved -post-op angiogram showed no residual aneurysm and no significant vasospasm -PT/OT/ST on board -Continue Keppra -Continue Nimotop for a 21 day course -Floor status -SQ heparin on board for DVT prophylaxis -call with any questions or concerns -D/w Dr Baeza Subjective: Pt resting in bed, states headache maybe slightly improved today but not sure yet. Objective: AAOx3 NAD VSS Incision cdi Motor 5/5 BUE/BLE Urinary Catheter in Place: No - Physician Discussed Patient with : Aryan Patient Seen by : Aryan Neurosurgery Physical Exam - Vitals, I&O, Labs I and O 05/13/17 05/14/17 05/15/17 05:59 05:59 05:59 Intake Total 500 1750 Output Total 500 Balance 0 1750 Intake: Oral (ml) 500 1750 Output: Urine (ml) 500 Toilet 500 Other: Number of Voids Toilet 1 2 Number of Stools Toilet 1 Vital Signs Temp Pulse Resp BP Pulse Ox 36.7 C 55 L 14 129/87 H 100 05/13/17 20:00 05/14/17 00:00 05/14/17 00:00 05/14/17 00:00 05/14/17 00:00 Laboratory Results 05/11/17 08:50 05/11/17 08:50 ICD10 Worksheet Patient Problems: Problems Problem Status Onset Aneurysm Acute Subarachnoid hemorrhage Acute
[2017-05-14] MEDS: levETIRAcetam 500 MG TAB PO SCH ×2 (09:20→19:58)
[2017-05-14] MEDS: SENNOSIDES/DOCUSATE SODIUM TAB PO SCH ×2 (09:20→19:58)
[2017-05-14] MEDS: HEPARIN 5,000 UNIT/0.5 ML SYR SC SCH ×2 (09:20→23:11)
[2017-05-14] MEDS: DIAZEPAM 5 MG TAB PO PRN (14:37)
[2017-05-14] MEDS: ONDANSETRON 4 MG/2 ML VIAL IVP PRN (16:59)
--- NOTE | 2017-05-14 17:05 | HOSPPROG ---
Hospitalist Progress Note Assessment/Plan: 37 yo M with PMH of PKD presenting with SAH in setting of R MCA aneursym # Subarachnoid hemorrhage. 2/2 distal R MCA aneurysm now s/p crani and clipping of MCA 05/06, DONOVAN since removed. Headaches persist, though a bit better. Had fluid collection drained by neurosurgery -considering steroids if headaches not improving -goal systolic blood pressure less than 140 -per NSGY nimotop for vasospasm x21 d -keppra for seizure pplx -cont neurochecks -pain controlled on PRN morphine # Polycystic kidney disease. Complicated by hypertensive renal disease. -consider initiation of lisinopril after 3 weeks of nimotop Diet. Regular Prophylaxis. NICKOLAS per neurosurg Code. Full Disposition. cont inpt, transfer to med surg per neurosurg. hopefully home in 1-2 days Subjective: Pt continues to c/o headache, 3-5/10 today, which is improved from yesterday. No vision changes or focal weakness. No CP, SOb. Eating well. Ambulating. Objective: Vital Signs Temp Pulse Resp BP Pulse Ox 36.6 C 51 L 16 123/76 H 95 05/14/17 16:21 05/14/17 16:21 05/14/17 16:21 05/14/17 16:21 05/14/17 16:21 Microbiology 05/14/17 07:55 Gram Stain - Final Cerebral Spinal Fluid Laboratory Results 05/11/17 08:50 05/11/17 08:50 05/13/17 05/14/17 05/15/17 05:59 05:59 05:59 Intake Total 500 1750 Output Total 500 Balance 0 1750 PT 13.0 SEC (12.0-15.0) 05/06/17 09:33 INR 1.01 (0.83-1.16) 05/06/17 09:33 - Physical Exam Constitutional: no apparent distress Eyes: PERRL Ears, Nose, Mouth, Throat: moist mucous membranes Cardiovascular: regular rate and rhythym Respiratory: no respiratory distress Gastrointestinal: normoactive bowel sounds Skin: warm Musculoskeletal: full muscle strength Neurologic: AAOx3 Psychiatric: interacting appropriately ICD10 Worksheet Patient Problems: Problems Problem Status Onset Aneurysm Acute Subarachnoid hemorrhage Acute
[2017-05-14] MEDS ORDERED: HYDROmorphONE/DILAUDID 1 MG/ML SYR IVP ONE ×2 (18:15→19:45)
[2017-05-14] MEDS: PROMETHAZINE HCL 25 MG/ML INJ IVP PRN (19:45)
[2017-05-14] MEDS: ACETAMINOPHEN 325 MG TAB PO PRN (22:29)
[2017-05-14] MEDS: HYDROmorphONE/DILAUDID 1 MG/ML SYR IVP PRN (23:11)
[2017-05-15] MEDS: oxyCODONE IR 5 MG TAB PO PRN ×2 (03:00→12:37)
[2017-05-15] MEDS: DIAZEPAM 5 MG TAB PO PRN ×3 (03:01→19:04)
[2017-05-15] MEDS: niMODipine 30 MG CAP PO SCH ×4 (03:06→14:42)
[2017-05-15] MEDS: HYDROmorphONE/DILAUDID 1 MG/ML SYR IVP PRN ×4 (04:18→10:44)
[2017-05-15] MEDS: ACET/CAFFEINE/BUTA FIORICET 1 EACH TAB PO PRN (04:20)
--- NOTE | 2017-05-15 08:11 | SOAPPROG ---
SOAP Progress Note Assessment/Plan: Assessment: 37 yo M POD #6 craniotomy for clip ligation of right MCA aneurysm Plan: neuro: worsening headaches last night, head ct without acute hemorrhage, headaches may be from hydrocephalus patient may need lumbar drain if headaches do not improve on nimodipine on keppra PT/OT/ST please call with neuro changes discussed with Dr Baeza 05/15/17 08:08 Subjective: continued headaches, some nausea and photophobia. No weakness. Objective: Vital Signs Temp Pulse Resp BP Pulse Ox 37.2 C 49 L 18 150/90 H 99 05/15/17 04:00 05/15/17 04:00 05/15/17 04:00 05/15/17 04:00 05/15/17 04:00 Microbiology 05/14/17 07:55 Gram Stain - Final Cerebral Spinal Fluid Laboratory Results 05/11/17 08:50 05/11/17 08:50 05/14/17 05/15/17 05/16/17 05:59 05:59 05:59 Intake Total 1750 500 Balance 1750 500 PT 13.0 SEC (12.0-15.0) 05/06/17 09:33 INR 1.01 (0.83-1.16) 05/06/17 09:33 AAOx4, +FC PERRL, EOMI, no facial droop 5/5 + light touch C/D/I ICD10 Worksheet Patient Problems: Problems Problem Status Onset Aneurysm Acute Subarachnoid hemorrhage Acute
[2017-05-15] MEDS: IBUPROFEN 600 MG TAB PO PRN (08:33)
[2017-05-15] MEDS: levETIRAcetam 500 MG TAB PO SCH (08:33)
[2017-05-15] MEDS: METHOCARBAMOL 750 MG TAB PO PRN (08:33)
[2017-05-15] MEDS: SENNOSIDES/DOCUSATE SODIUM TAB PO SCH (08:34)
[2017-05-15] MEDS: HEPARIN 5,000 UNIT/0.5 ML SYR SC SCH (08:35)
[2017-05-15] MEDS: PROMETHAZINE HCL 25 MG/ML INJ IVP PRN ×3 (09:05→20:10)
[2017-05-15 10:10] LABS: APTT 27.6 SEC (23.0-38.0); PROTIME(PATIENT) 13.1 SEC (12.0-15.0)
[2017-05-15] MEDS ORDERED: HYDROmorphONE/DILAUDID 6 MG/30 ML PCA IV PRN (12:07)
[2017-05-15] MEDS ORDERED: diphenhydrAMINE 25 MG CAP PO PRN (12:07)
[2017-05-15] MEDS ORDERED: NALOXONE HCL 0.4 MG/ML INJ IVP PRN (12:07)
--- NOTE | 2017-05-15 12:37 | HOSPPROG ---
Hospitalist Progress Note Assessment/Plan: 37 yo M with PMH of PKD presenting with SAH in setting of R MCA aneursym. Today is my first encounter with the patient, chart reviewed. *SAH secondary to a R MCA aneurysm s/o craniotomy and clipping of MCA 05/06 (DONOVAN removed) Nimotop (will need 3 Weeks) for vasospasms Keppra for seizure prophylaxis repeat CT of head last night/ no acute hemorrhage, but hydrocephalus *Headaches due to the above, but had worsening headache last night & today may need lumbar drain on RETANNER *Lumbar pain uncomfortable in the bed PT and OT *Polycystic kidney disease should get f/u with nephrology/ per his mom this has been monitored may benefit w treatment of lisinopril after treatment w Nimotop will avoid any nephrotoxic medications/ he is on ibuprofen (recommend if ok w neurosurgery to stop this med) will check his kidney function in the morning *Diet. Regular * DVT Prophylaxis: heparin SQ Subjective: Raúl said his headache is severe. Objective: Vital Signs Temp Pulse Resp BP Pulse Ox 36.8 C 49 L 16 124/83 H 93 05/15/17 08:00 05/15/17 08:00 05/15/17 08:00 05/15/17 08:00 05/15/17 08:00 Microbiology 05/14/17 07:55 Gram Stain - Final Cerebral Spinal Fluid Laboratory Results 05/11/17 08:50 05/11/17 08:50 05/14/17 05/15/17 05/16/17 05:59 05:59 05:59 Intake Total 1750 500 Balance 1750 500 PT 13.1 SEC (12.0-15.0) 05/15/17 09:50 INR 1.00 (0.83-1.16) 05/15/17 09:50 - Physical Exam Constitutional: uncomfortable, No not in pain Eyes: PERRL Ears, Nose, Mouth, Throat: hearing normal Cardiovascular: regular rate and rhythym Respiratory: no respiratory distress Gastrointestinal: normoactive bowel sounds Skin: warm Neurologic: AAOx3 Psychiatric: not encephalopathic, thought process linear, anxious ICD10 Worksheet Patient Problems: Problems Problem Status Onset Aneurysm Acute Subarachnoid hemorrhage Acute
[2017-05-15] MEDS ORDERED: DEXAMETHASONE 4 MG TAB PO ONE (13:15)
[2017-05-15] MEDS: ONDANSETRON DISINTEGRATING 4 MG TAB PO PRN (14:58)
[2017-05-15 17:26] LABS: CSF SUPERNATANT XANTHOCHROMIC (COLORLESS)
[2017-05-15 17:33] LABS: CSF APPEARANCE CLOUDY (CLEAR); CSF COLOR RED (COLORLESS)
[2017-05-15 17:34] LABS: WBC, CSF 1489 /mm3 (0-5)
[2017-05-15 18:02] LABS: PROTEIN, CSF 503 mg/dL (12-60)
[2017-05-15] MEDS ORDERED: DEXMEDETOMIDINE HCL 400 MCG in NS 100 ML IV SCH (21:00)
[2017-05-15] MEDS ORDERED: LIDOCAINE 2% JELLY 5 ML TUBE TP ONE (23:30)
[2017-05-15] MEDS ORDERED: ceFAZolin 2 GM/DEXTROSE 100 ML IV ONE (23:30)
[2017-05-15] MEDS ORDERED: LIDOCAINE 1% 300 MG/30 ML SDV ONE (23:37)
[2017-05-16] MEDS: HEPARIN 5,000 UNIT/0.5 ML SYR SC SCH ×3 (00:46→21:26)
[2017-05-16] MEDS: levETIRAcetam 500 MG TAB PO SCH ×3 (00:47→20:35)
[2017-05-16] MEDS: SENNOSIDES/DOCUSATE SODIUM TAB PO SCH ×3 (00:48→20:35)
[2017-05-16] MEDS: NS W/ 20 KCl/L 1,000 ML IV SCH (03:13)
[2017-05-16] MEDS: ONDANSETRON 4 MG/2 ML VIAL IVP PRN ×2 (03:20→08:13)
[2017-05-16] MEDS: CALCIUM CARBONATE 500 MG CHEWABLE TAB PO PRN ×2 (05:01→10:08)
[2017-05-16 05:20] LABS: % IMMATURE GRANULYOCYTES 0.5 % (0.0-1.1); ABSOLUTE IMMATURE GRANULOCYTES 0.07 10^3/uL (0.00-0.10); ADD DIFF? NO; ADD MORPH? NO; ADD SCAN? NO; ATYPICAL LYMPHOCYTE FLAG 0 (0-99); FRAGMENT RBC FLAG 0 (0-99); HEMATOCRIT 42.5 % (40.0-51.0); HEMOGLOBIN 15.4 g/dL (13.7-17.5); LEFT SHIFT FLG 0 (0-99); LIPEMIA HEMOLYSIS FLAG 90 (0-99); MEAN CELL HEMOGLOBIN 31.3 pg (27.9-34.1); MEAN CELL HEMOGLOBIN CONCENTR. 36.2 g/dL (32.4-36.7); MEAN CELL VOLUME 86.4 fL (81.5-99.8); PLATELET CLUMPS FLAG 0 (0-99); PLATELET COUNT 303 10^3/uL (150-400); RED BLOOD CELL COUNT 4.92 10^6/uL (4.40-6.38); RED CELL DISTRIBUTION WIDTH 11.4 % (11.5-15.2)
[2017-05-16 05:37] LABS: ANION GAP 13 mEq/L (8-16); CALCIUM 9.7 mg/dL (8.5-10.4); CARBON DIOXIDE 21 mEq/l (22-31); CHLORIDE 97 mEq/L (97-110); CREATININE 0.8 mg/dL (0.7-1.3); GLOMERULAR FILTRATION RATE > 60; GLUCOSE 120 mg/dL (70-100); POTASSIUM 4.4 mEq/L (3.5-5.2); SODIUM 131 mEq/L (134-144)
[2017-05-16] MEDS: ACETAMINOPHEN 500 MG TAB PO PRN (06:19)
[2017-05-16] MEDS: CEFEPIME HCL 2 GM in D5W 100 ML IV SCH ×2 (08:58→21:26)
--- NOTE | 2017-05-16 09:40 | GPN ---
[f rep st] PROCEDURE NOTE DATE OF PROCEDURE: 05/15/2017 PROCEDURE: Placement of lumbar drain. PREOPERATIVE DIAGNOSIS: Hydrocephalus. POSTOPERATIVE DIAGNOSIS: Hydrocephalus. BRIEF CLINICAL HISTORY: The patient is a 37-year-old man who had a clipping of a ruptured right MCA aneurysm about 10 days ago. He has been having increasing headaches and some subgaleal fluid under tension at his flap site. He had a lumbar puncture today, which showed an opening pressure in the 30s. We elected to place a lumbar drain for CSF diversion. DESCRIPTION OF PROCEDURE: After informed consent was obtained for the patient, the patient was turn ed to the left lateral decubitus position at the bedside. The lumbar region was prepped using Chlor aPrep and draped sterilely. A 14-gauge Tuohy needle was then used to gain access at the L3-4 inters pace by localizing the iliac crest, and free-flow of yellowish spinal fluid was obtained. The lumba r drain was then threaded to a depth of about 25 cm and was working well. The drain was then very c arefully sterilely dressed and connected to a sterile drainage system. The drain was working well a t the end of the procedure without any complications. Blood loss was minimal. There were no compli cations. ANESTHESIA: Local anesthesia with 10 cc of 1% lidocaine at the insertion site. /[id number]/MODL
[2017-05-16] MEDS: VANCOMYCIN 1.5 GM in D5W 250 ML IV SCH ×2 (09:43→20:33)
--- NOTE | 2017-05-16 09:55 | SOAPPROG ---
SOAP Progress Note Assessment/Plan: Assessment: 37 yo M POD #7 craniotomy for clip ligation of right MCA aneurysm Plan: neuro: headache partially improved with lumbar drain but still significant. CSF cultures negative, low glucose on csf cytology but no recent fevers, leukocytosis this am could be from decadron yesterday. Discussed with Dr Marcos from ID this am, ok to cover empirically with vanco/maxipime until csf cultures are final. open pressure on LP was 40, will keep lumbar drain open to drain for now hyponatremia: may have component of SIADH with pain/headaches yesterday, continue to follow for now but will recheck Na later on keppra PT/OT/ST please call with neuro changes Seen by Dr Baeza 05/15/17 08:08 05/16/17 09:52 Subjective: continued headaches and neck stiffness, no fevers, some photophobia. No weakness or paresthesias. Objective: Vital Signs Temp Pulse Resp BP Pulse Ox 36.9 C 51 L 12 128/78 H 99 05/16/17 08:00 05/16/17 09:00 05/16/17 09:00 05/16/17 09:00 05/16/17 09:00 Microbiology 05/14/17 07:55 Gram Stain - Final Cerebral Spinal Fluid 05/15/17 16:54 Gram Stain - Final Cerebral Spinal Fluid Laboratory Results 05/16/17 05:00 05/16/17 05:00 05/15/17 05/16/17 05/17/17 05:59 05:59 05:59 Intake Total 500 1590 Output Total 2190 48 Balance 500 -600 -48 PT 13.1 SEC (12.0-15.0) 05/15/17 09:50 INR 1.00 (0.83-1.16) 05/15/17 09:50 AAOx4, +FC PERRL, EOMI, no facial droop WALLY x 4 + light touch C/D/I ICD10 Worksheet Patient Problems: Problems Problem Status Onset Aneurysm Acute Subarachnoid hemorrhage Acute
[2017-05-16] MEDS: ACET/CAFFEINE/BUTA FIORICET 1 EACH TAB PO PRN (11:34)
--- NOTE | 2017-05-16 13:31 | GCON ---
[f rep st] CONSULTATION BLISTER RUST ERADICATOR CONSULTATION REASON FOR ADMISSION: Headache. Subarachnoid hemorrhage, status post lumbar drain. HISTORY OF PRESENT ILLNESS: The patient is a 37-year-old, white male with a past medical history of polycystic kidney disease and hypertension. He presents with acute headache on 05/06/2017. He indonnie morejony went to [facility] and was subsequently transferred here. He was d iagnosed with a subarachnoid hemorrhage, in addition to his ongoing hypertension and polycystic kidn ey disease. He was admitted and seen by Neurosurgery. He underwent a right frontotemporal cranioto my and a microsurgical clipping of the ruptured right middle cerebral artery aneurysm on 05/06/2017. The DONOVAN drain was removed on 05/08; however, on the evening of 05/15, he began developing a very se miguel angel headache. A lumbar drain was placed this morning, 05/16. Currently, the patient is quite drow sy and complaining of a headache. However, this has improved dramatically. PAST MEDICAL HISTORY: Again, significant for subarachnoid hemorrhage, polycystic kidney disease, hy pertension. ALLERGIES: None noted to medications. MEDICATIONS: At home includes, acetaminophen, omeprazole. SOCIAL HISTORY: Previous smoker, continues to chew tobacco. He drinks a 6-pack of alcohol regularl y. He has used some marijuana. His father is at the bedside. He has good family support. 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 PHYSICAL EXAM: VITAL SIGNS: Blood pressure is 135/83, pulse 46, respirations 14, temperature 36.9, oxygen saturation 100% on room air. GENERAL: He is a well-developed, well-nourished 37-year-old w [place] male who is resting comfortably in no acute distress. HEENT: Eyes appear EOMI. Throat shows no erythema nor tonsil hypertrophy. NECK: Supple. There is no cervical adenopathy. HEART: Regul ar rate and rhythm without murmurs, rubs, or gallops. LUNGS: Clear to auscultation. No wheeze or rhonchi. ABDOMEN: Soft, nontender. Bowel sounds present in all 4 quadrants. EXTREMITIES: No clu bbing, cyanosis, or edema. LABORATORIES: White count 15, hemoglobin 15, hematocrit 42, platelet count 303. Sodium 131, potass ium 4.4, chloride 97, CO2 is 21, BUN 19, creatinine 0.8, glucose is 120. CSF fluid shows 1,489 whit e cells, predominantly lymphs; 16,235 red cells. IMPRESSION: 1. Status post subarachnoid hemorrhage with a right middle cerebral artery aneurysm, with clipping. 2. Polycystic kidney disease. 3. Hypertension. 4. Continued headache, improved after lumbar drain. 5. Leukocytosis of cerebrospinal fluid. Antibiotics per Dr. Marcos. RECOMMENDATIONS: 1. Continue adequate pain control. 2. DVT and PE prophylaxis. 3. Stress ulcer prophylaxis. 4. Antibiotics per Infectious Disease. 5. Physical therapy and occupational therapy. /[id number]/MODL
--- NOTE | 2017-05-16 13:58 | HOSPPROG ---
Hospitalist Progress Note Assessment/Plan: Assessment: 36-year-old male presenting with acute subarachnoid hemorrhage in the setting of right MCA aneurysm and polycystic kidney disease, c/b acute hydrocephalus Plan: 1. SAH. Acute, 2/2 aneurysm R MCA, s/p craniotomy and clipping of MCA 05/06 (DONOVAN removed) - Nimotop (will need 3 Weeks) for vasospasms - Keppra for seizure prophylaxis 2. Hydrocephalus. Acute, present on HCT w/ shifting, matured blood - lumbar drain placed by NSGY 3. Possible meningitis. Unclear if CSF represent overt infxn in setting of recent surgery, potentially exacerbating his headache - empiric Vanco/Cef per ID, appreciate consultation 4. Headaches. Acute, initially 2/2 SAH, then surg, now either hydrocephalus vs. infxn - morphine IR PO, fioricet, PRN dilaudid IV for breakthrough - counseled patient and his father that goal is to get pain under control, then come up with a maintenance plan (L-drain being part of this) 5. Polycystic kidney disease. Fam hx ESRD, has had chronic HTN, holding on lisinopril given that SBP 120-140 and on nimotop - will avoid any nephrotoxic medications/ he is on ibuprofen (recommend if ok w neurosurgery to stop this med) - monitor Cr 6. Hyponatremia. Acute, unclear etiology, monitoring and get Madeleine if worsening Diet. Regular Prophylaxis. High risk patient, hep SC Code. Full Disposition. Anticipated discharge uncertain, pending stability of above, requiring ongoing SDU care for new L-drain Subjective: Counseled the patient regarding headache management and expected relief Objective: Vital Signs Temp Pulse Resp BP Pulse Ox 36.9 C 52 L 17 135/83 H 98 05/16/17 08:00 05/16/17 12:59 05/16/17 12:59 05/16/17 11:00 05/16/17 12:59 Microbiology 05/14/17 07:55 Gram Stain - Final Cerebral Spinal Fluid 05/15/17 16:54 Gram Stain - Final Cerebral Spinal Fluid Laboratory Results 05/16/17 05:00 05/16/17 05:00 05/15/17 05/16/17 05/17/17 05:59 05:59 05:59 Intake Total 500 1590 Output Total 2190 94 Balance 500 -600 -94 PT 13.1 SEC (12.0-15.0) 05/15/17 09:50 INR 1.00 (0.83-1.16) 05/15/17 09:50 - Time Spent With Patient Time Spent with Patient: greater than 35 minutes Time Spent with Patient: Greater than 35 minutes spent on this patients care, greater than 50% of time spent counseling, educating, and coordinating care regarding the above mentioned plan. - Physical Exam Constitutional: uncomfortable, No no apparent distress ( mild distress), No not in pain Cardiovascular: regular rate and rhythym, no murmur, rub, or gallop Respiratory: no respiratory distress, no rales or rhonchi, clear to auscultation Gastrointestinal: soft, non-tender abdomen, no palpable masses, No normoactive bowel sounds ( hypoactive bowel sounds), No distension Neurologic: AAOx3 Psychiatric: interacting appropriately, not anxious, not encephalopathic, thought process linear ICD10 Worksheet Patient Problems: Problems Problem Status Onset Aneurysm Acute Subarachnoid hemorrhage Acute
--- NOTE | 2017-05-16 20:07 | GCON ---
[f rep st] CONSULTATION INPATIENT INFECTIOUS DISEASE CONSULTATION REFERRING PHYSICIAN: Pipo Baeza MD REASON FOR REFERRAL: Concerns for central nervous system postoperative infection. HISTORY OF PRESENT ILLNESS: Patient is a 37-year-old male, who presented to [facility] on 05/06/2017, with sudden-onset headache. Patient ended up being diagnosed with a right MCA aneu rysmal bleed. The patient underwent a frontotemporal craniotomy with clipping of the right middle c erebral artery aneurysm. This was a successful procedure. The patient had his DONOVAN drain removed 2 d ays later. There were no complications. The patient has been afebrile throughout his stay; however , began to have increasing headaches over the next few days. He had repeat CT scans, which showed i ncrease in low attenuation fluid along the right frontotemporal craniotomy site. The patient underw ent overnight placement of a lumbar drain. A sample of the fluid was sent for cell count and cultur e. That fluid revealed 16,000 red cells and 1500 white cells. There was a minimal shift to neutrop hilia and a glucose level that was less than 20. Cultures are pending. The patient was placed on v ancomycin and cefepime empirically. He is currently resting comfortably in his hospital bed. PAST MEDICAL HISTORY: 1. Polycystic kidney disease with hypertension. 2. Gastroesophageal reflux disease. PAST SURGICAL HISTORY: As above. MEDICATIONS: Antibiotics: 1. Vancomycin. 2. Cefepime. ALLERGIES: The patient has no known drug allergies. SOCIAL HISTORY: The patient is a former tobacco user. He currently chews tobacco. He drinks 6 bee rs daily regularly. No drug use apart from occasional marijuana. FAMILY HISTORY: Father's side with polycystic kidney disease. REVIEW OF SYSTEMS: Other than that detailed above in the History of Present Illness, comprehensive 10-system review is negative. PHYSICAL EXAMINATION: VITAL SIGNS: Temperature maximum 37.2. Temperature current is 36.9. Heart rate is 56, respiratory rate is 17, blood pressure is 137/84. GENERAL: The patient is a well-forme d well-nourished male in no acute distress. He is not toxic in appearance. He is alert and oriente d x3. He has a pleasant demeanor. HEENT: Normocephalic for age. The patient is postoperative wit h a right craniotomy. No scleral icterus. No oral lesion or drainage from the nares. Eyes: Lids and conjunctivae are within normal limits. Pupils are equal and round bilaterally. NECK: Supple w ithout meningismus. LUNGS: Clear to auscultation bilaterally with good effort. HEART: Regular ra te and rhythm. No murmur, rub, or gallop noted. No significant peripheral edema. SKIN: Warm and dry to the touch. No rash or lesion seen. NEURO: Cranial nerves 2-12 seem to be intact. Peripher al sensation seems intact in extremities. LABORATORY DATA: The patient has a CBC dated 05/16/17, shows a white blood cell count of 15.0, hemo globin of 15.4, hematocrit 42.5, and a platelet count of 303. There is a slight left shift with 81% segmented neutrophils. Serum chemistries on 05/16/17, show sodium 131, potassium 4.4, chloride of 97, bicarb 21, BUN of 19, creatinine is 0.8. Spinal fluid from 05/15/17, shows 1489 white cells, 16 ,235 red cells, 74% segmented neutrophils, glucose level is less than 20, total protein is elevated at 503. MICROBIOLOGIC DATA: Patient has cerebral spinal fluid from 05/14/17, which is no growth to date. S ino fluid from 05/15/17, is growing coagulase-negative staphylococcus in rare amount. ASSESSMENT: Possible postoperative central nervous system infection after a right frontotemporal cr aniotomy for a middle cerebral artery aneurysmal bleed. The patient is afebrile but white count is somewhat elevated systemically at 15. The patient has a headache, which is likely indicative of inf lammation. His spinal fluid values are concerning, as there are more white cells seen than is sunny l for just bleeding. He also has a significantly decreased glucose level. The cultures are growing a rare amount of coagulase-negative staphylococci. This could be a pathogen or alternately could b e contaminant. He is covered never the less with vancomycin and cefepime, which are appropriate at this juncture. We will continue that antibiotic regimen and evaluate clinically going forward. We will keep an eye on the culture results and sensitivities. Would anticipate at least a 2-week time course of empiric therapy. PLAN: 1. Continue vancomycin and cefepime. 2. Check vancomycin trough prior to 4th dose. 3. Follow the patient's clinical course and temperature curve. /[id number]/MODL
[2017-05-16] MEDS: METHOCARBAMOL 750 MG TAB PO PRN (20:34)
[2017-05-17] MEDS: DIAZEPAM 5 MG TAB PO PRN ×2 (00:27→20:40)
[2017-05-17] MEDS: METHOCARBAMOL 750 MG TAB PO PRN ×2 (04:26→20:40)
[2017-05-17] MEDS: ACETAMINOPHEN 500 MG TAB PO PRN (04:26)
[2017-05-17 05:07] LABS: % IMMATURE GRANULYOCYTES 0.4 % (0.0-1.1); ABSOLUTE IMMATURE GRANULOCYTES 0.04 10^3/uL (0.00-0.10); ADD DIFF? NO; ADD MORPH? NO; ADD SCAN? NO; ATYPICAL LYMPHOCYTE FLAG 0 (0-99); FRAGMENT RBC FLAG 0 (0-99); HEMATOCRIT 40.7 % (40.0-51.0); HEMOGLOBIN 14.5 g/dL (13.7-17.5); LEFT SHIFT FLG 0 (0-99); LIPEMIA HEMOLYSIS FLAG 90 (0-99); MEAN CELL HEMOGLOBIN 31.6 pg (27.9-34.1); MEAN CELL HEMOGLOBIN CONCENTR. 35.6 g/dL (32.4-36.7); MEAN CELL VOLUME 88.7 fL (81.5-99.8); MEAN PLATELET VOLUME 10.2 fL (8.7-11.7); PLATELET CLUMPS FLAG 10 (0-99); PLATELET COUNT 243 10^3/uL (150-400); RED BLOOD CELL COUNT 4.59 10^6/uL (4.40-6.38); RED CELL DISTRIBUTION WIDTH 11.7 % (11.5-15.2)
[2017-05-17 05:19] LABS: ANION GAP 11 mEq/L (8-16); CARBON DIOXIDE 24 mEq/l (22-31); CHLORIDE 99 mEq/L (97-110); GLOMERULAR FILTRATION RATE > 60; GLUCOSE 110 mg/dL (70-100); SODIUM 134 mEq/L (134-144)
[2017-05-17] MEDS: SENNOSIDES/DOCUSATE SODIUM TAB PO SCH ×2 (08:19→20:40)
[2017-05-17] MEDS: levETIRAcetam 500 MG TAB PO SCH ×2 (08:20→20:39)
[2017-05-17] MEDS: VANCOMYCIN 1.5 GM in D5W 250 ML IV SCH ×2 (08:21→20:47)
[2017-05-17] MEDS: HEPARIN 5,000 UNIT/0.5 ML SYR SC SCH ×2 (08:21→20:39)
--- NOTE | 2017-05-17 08:29 | NEUSURGPN ---
Date of Surgery: 05/06/17 Post Op Day: 11 Assessment/Plan: Assessment: 37 yo M status post craniotomy for clip ligation of right MCA aneurysm Plan: - neuro stable - continue lumbar drain throughout the weekend. Will have patient mobilize today to help determine if we need to drain more or less from the lumbar drain. Will likely have a mild headache upon getting up - appreciate ID following, on vanc and cefepime. Rate amount of coagulase-neg staphylococci on CSF culture- could be pathogen or contaminant - continue to follow Na, improved this morning at 134 - continue Keppra - PT/OT/ST - call with any neuro changes Patient seen by Dr. Baeza as well this morning Subjective: Has a mild headache at 310. No UE/LE symptoms. Objective: Awake. Alert. PERRL. EOMI Facial expression symmetrical Speech fluent Muscle strength full Incision c/d/i - Physician Patient Seen by : [facility] Physical Exam - Vitals, I&O, Labs I and O 05/16/17 05/17/17 05/18/17 05:59 05:59 05:59 Intake Total 1590 3541 Output Total 2190 2284 20 Balance -600 1257 -20 Intake: Oral (ml) 940 700 IV Intake (ml) 100 IV Infused (ml) 550 2841 NS W/ 20 KCl/L 1,000 ml @ 550 2841 100 mls/hr IV CONT NICKOLAS Rx#:[id number] Output: Urine (ml) 2100 1950 Toilet 1800 Urinal 300 1950 CSF Drainage Amount 90 334 20 Lumbar Drain 90 334 20 Other: Number of Voids Toilet 1 Urinal 1 Microbiology 05/15/17 16:54 Gram Stain - Final Cerebral Spinal Fluid 05/14/17 07:55 Gram Stain - Final Cerebral Spinal Fluid Vital Signs Temp Pulse Resp BP Pulse Ox 36.6 C 48 L 14 132/76 H 98 05/17/17 07:44 05/17/17 07:44 05/17/17 07:44 05/17/17 07:44 05/17/17 07:44 Laboratory Results 05/17/17 04:45 05/17/17 04:45 ICD10 Worksheet Patient Problems: Problems Problem Status Onset Aneurysm Acute Subarachnoid hemorrhage Acute
--- NOTE | 2017-05-17 09:05 | PDINTPN ---
Dba Manager Progress Note Assessment/Plan: Assessment: * Subarachnoid hemorrhage-status post craniotomy with microsurgical clipping of ruptured right middle cerebral artery * Headache-patient states 4/10 in severity * Status post lumbar drain * Polycystic kidney disease * Hypertension Plan: Continue present care Subjective: Complains of headache he describes as 4/10. Denies any nausea. Denies any chest pain. Appetite is poor Objective: Vital Signs Temp Pulse Resp BP Pulse Ox 36.6 C 48 L 14 132/76 H 98 05/17/17 07:44 05/17/17 07:44 05/17/17 07:44 05/17/17 07:44 05/17/17 07:44 Microbiology 05/15/17 16:54 Gram Stain - Final Cerebral Spinal Fluid 05/14/17 07:55 Gram Stain - Final Cerebral Spinal Fluid Laboratory Results 05/17/17 04:45 05/17/17 04:45 05/16/17 05/17/17 05/18/17 05:59 05:59 05:59 Intake Total 1590 3541 Output Total 2190 2284 30 Balance -600 1257 -30 PT 13.1 SEC (12.0-15.0) 05/15/17 09:50 INR 1.00 (0.83-1.16) 05/15/17 09:50 Physical Exam - Physical Exam General Appearance: alert, mild distress EENT: PERRL/EOMI, normal ENT inspection, pharynx normal, TMs normal Neck: non-tender, full range of motion, supple, normal inspection Respiratory: chest non-tender, lungs clear, normal breath sounds Cardiac/Chest: normal peripheral pulses, regular rate, rhythm Peripheral Pulses: 2+: carotid (R), carotid (L), femoral (R), femoral (L), dorsalis-pedis (R), dorsalis-pedis (L) Abdomen: normal bowel sounds, non-tender, soft Male Genitalia: deferred Rectal: deferred Skin: normal color, warm/dry Extremities: normal range of motion, non-tender, normal inspection, normal capillary refill ICD10 Worksheet Patient Problems: Problems Problem Status Onset Aneurysm Acute Subarachnoid hemorrhage Acute
--- NOTE | 2017-05-17 09:56 | PCMIDPN ---
Assessment/Plan: Assessment/Plan: * Possible meningitis post aneurysmal bleed/craniotomy with clipping: CSF shows pleocytosis with growth of 1 colony of coagulase-negative Staphylococcus. Difficult to discern if this represents contaminant versus true pathogen. Given clinical circumstances, will proceed with treatment with vancomycin. Will discontinue cefepime given no growth of gram-negative rods. Will assess vancomycin trough this evening. Repeat CSF cell count and Gram stain/culture as this may also assist with further defining role of coagulase-negative Staph. 05/17/17 09:53 05/17/17 09:55 Subjective: Patient complains of headache of 4/10 in severity. No rash or diarrhea. Objective: Vital Signs Temp Pulse Resp BP Pulse Ox 36.6 C 50 L 14 129/79 H 98 05/17/17 07:44 05/17/17 09:00 05/17/17 09:00 05/17/17 09:00 05/17/17 07:44 Microbiology 05/15/17 16:54 Gram Stain - Final Cerebral Spinal Fluid 05/14/17 07:55 Gram Stain - Final Cerebral Spinal Fluid Laboratory Results 05/17/17 04:45 05/17/17 04:45 05/16/17 05/17/17 05/18/17 05:59 05:59 05:59 Intake Total 1590 3541 Output Total 2190 2284 40 Balance -600 1257 -40 Vancomycin # 2 Cefepime # 2 CSF with growth of 1 colony of coagulase-negative Staph (have asked lab to further workup) - Physical Exam General Appearance: alert, no apparent distress EENT: other (Craniotomy incision intact without erythema or drainage) Respiratory: lungs clear, No respiratory distress Neck: No meningismus Cardiac/Chest: regular rate, rhythm, No systolic murmur Abdomen: non-tender, No distended Skin: No rash ICD10 Worksheet Patient Problems: Problems Problem Status Onset Aneurysm Acute Subarachnoid hemorrhage Acute
[2017-05-17] MEDS: ACET/CAFFEINE/BUTA FIORICET 1 EACH TAB PO PRN (10:25)
[2017-05-17 11:41] LABS: CSF APPEARANCE CLEAR (CLEAR); CSF SUPERNATANT XANTHOCHROMIC (COLORLESS); WBC, CSF 403 /mm3 (0-5)
[2017-05-17 11:42] LABS: CSF COLOR COLORLESS (COLORLESS)
--- NOTE | 2017-05-17 12:14 | ASMTCMCOM ---
CM Note CM Note Notes: Patient rep came to request patient's mother be assisted by getting patient to sign a release of information so she can advocate for him. Patient rep was called when patient's pain was not being managed and he was on his knees throwing up from pain. Patient was transferred back to ICU for closer monitoring. Patient did want to sign the general release of information for his mother. A copy was placed in the chart and a copy was given to patient's mother. Patient will most likely d/c independent to outpatient f/u. CM available if needs change. Date Signed: 05/17/2017 12:13 PM Electronically Signed By:Anisha Guevara
[2017-05-17] MEDS: HYDROmorphONE/DILAUDID 1 MG/ML SYR IVP PRN ×4 (13:12→22:51)
--- NOTE | 2017-05-17 16:37 | HOSPPROG ---
Hospitalist Progress Note Assessment/Plan: Assessment: 36-year-old male presenting with acute subarachnoid hemorrhage in the setting of right MCA aneurysm and polycystic kidney disease, c/b acute hydrocephalus and possible meningitis Plan: 1. SAH. Acute, 2/2 aneurysm R MCA, s/p craniotomy and clipping of MCA 05/06 (DONOVAN removed) - Nimotop (will need 3 Weeks) for vasospasms - Keppra for seizure prophylaxis 2. Hydrocephalus. Acute, present on HCT w/ shifting, matured blood - lumbar drain placed by NSGY - counseled patient and mother that mobility is encouraged, gauge pain control w / movement, ongoing drain needs will dictate further care 3. Possible meningitis. Unclear if CSF represent overt infxn in setting of recent surgery, potentially exacerbating his headache, coag neg staph in CSF - per Chadd Mora single therapy, 2 weeks total 4. Headaches. Acute, initially 2/2 SAH, then surg, now either hydrocephalus vs. infxn - morphine IR PO, fioricet, PRN dilaudid IV for breakthrough 5. Polycystic kidney disease. Fam hx ESRD, has had chronic HTN, holding on lisinopril given that SBP 120-140 and on nimotop - will avoid any nephrotoxic medications - monitor Cr 6. Hyponatremia. Acute, unclear etiology, monitoring and get Madeleine if worsening Diet. Regular Prophylaxis. High risk patient, hep SC Code. Full Disposition. Anticipated discharge uncertain, pending stability of above, requiring ongoing SDU care for new L-drain Subjective: counseled patient and mother regarding pain mgmt, activity Objective: Vital Signs Temp Pulse Resp BP Pulse Ox 36.6 C 49 L 12 133/81 H 98 05/17/17 07:44 05/17/17 14:00 05/17/17 14:00 05/17/17 14:00 05/17/17 07:44 Microbiology 05/15/17 16:54 Gram Stain - Final Cerebral Spinal Fluid 05/17/17 11:00 Gram Stain - Final Cerebral Spinal Fluid 05/14/17 07:55 Gram Stain - Final Cerebral Spinal Fluid Laboratory Results 05/17/17 04:45 05/17/17 04:45 05/16/17 05/17/17 05/18/17 05:59 05:59 05:59 Intake Total 1590 3541 Output Total 2190 2284 90 Balance -600 1257 -90 PT 13.1 SEC (12.0-15.0) 05/15/17 09:50 INR 1.00 (0.83-1.16) 05/15/17 09:50 - Time Spent With Patient Time Spent with Patient: greater than 35 minutes Time Spent with Patient: Greater than 35 minutes spent on this patients care, greater than 50% of time spent counseling, educating, and coordinating care regarding the above mentioned plan. - Physical Exam Constitutional: no apparent distress, uncomfortable Ears, Nose, Mouth, Throat: hearing normal Cardiovascular: regular rate and rhythym, no murmur, rub, or gallop Respiratory: no respiratory distress, no rales or rhonchi, clear to auscultation Gastrointestinal: normoactive bowel sounds, soft, non-tender abdomen, no palpable masses Skin: other (many tattoos) Neurologic: AAOx3, No weakness (motor 5/5 bilat UE), No facial droop Psychiatric: interacting appropriately, not anxious, not encephalopathic, thought process linear ICD10 Worksheet Patient Problems: Problems Problem Status Onset Subarachnoid hemorrhage Acute Aneurysm Acute
[2017-05-17] MEDS: NS W/ 20 KCl/L 1,000 ML IV SCH (19:42)
[2017-05-18] MEDS: HYDROmorphONE/DILAUDID 1 MG/ML SYR IVP PRN (01:58)
[2017-05-18] MEDS: NS W/ 20 KCl/L 1,000 ML IV SCH ×2 (04:34→20:03)
[2017-05-18] MEDS: DIAZEPAM 5 MG TAB PO PRN ×3 (04:37→19:13)
[2017-05-18] MEDS: levETIRAcetam 500 MG TAB PO SCH ×2 (08:32→20:03)
[2017-05-18] MEDS: ACET/CAFFEINE/BUTA FIORICET 1 EACH TAB PO PRN ×2 (08:32→16:01)
[2017-05-18] MEDS: HEPARIN 5,000 UNIT/0.5 ML SYR SC SCH ×2 (08:32→20:03)
[2017-05-18] MEDS: METHOCARBAMOL 750 MG TAB PO PRN ×2 (08:33→15:13)
[2017-05-18] MEDS ORDERED: ALTEPLASE 2 MG VIAL IVP PRN (09:25)
--- NOTE | 2017-05-18 09:29 | PDINTPN ---
Director Safety Council Progress Note Assessment/Plan: Assessment/plan: * Subarachnoid hemorrhage-status post craniotomy with microsurgical clipping of ruptured right middle cerebral artery * Headache-patient states minimal improvement * Status post lumbar drain * Possible meningitis-will need long-term antibiotics of approximately 2 weeks -PICC line * Polycystic kidney disease * Hypertension Subjective: Still complaining of headache. Objective: Vital Signs Temp Pulse Resp BP Pulse Ox 36.7 C 48 L 13 130/83 H 97 05/18/17 08:00 05/18/17 09:00 05/18/17 09:00 05/18/17 09:00 05/18/17 09:00 Microbiology 05/15/17 16:54 Gram Stain - Final Cerebral Spinal Fluid 05/17/17 11:00 Gram Stain - Final Cerebral Spinal Fluid 05/14/17 07:55 Gram Stain - Final Cerebral Spinal Fluid Laboratory Results 05/17/17 04:45 05/17/17 04:45 05/17/17 05/18/17 05/19/17 05:59 05:59 05:59 Intake Total 3541 2866 Output Total 2284 220 40 Balance 1257 2646 -40 PT 13.1 SEC (12.0-15.0) 05/15/17 09:50 INR 1.00 (0.83-1.16) 05/15/17 09:50 Physical Exam - Physical Exam General Appearance: alert, mild distress EENT: PERRL/EOMI, normal ENT inspection, pharynx normal, TMs normal Neck: non-tender, full range of motion, supple, normal inspection Respiratory: chest non-tender, lungs clear, normal breath sounds Cardiac/Chest: normal peripheral pulses, regular rate, rhythm Abdomen: normal bowel sounds, non-tender, soft Male Genitalia: deferred Rectal: deferred Skin: normal color, warm/dry Extremities: normal range of motion, non-tender, normal inspection, normal capillary refill ICD10 Worksheet Patient Problems: Problems Problem Status Onset Aneurysm Acute Subarachnoid hemorrhage Acute
[2017-05-18] MEDS: VANCOMYCIN 1.5 GM in D5W 250 ML IV SCH (09:40)
[2017-05-18] MEDS: SENNOSIDES/DOCUSATE SODIUM TAB PO SCH ×2 (10:12→20:04)
--- NOTE | 2017-05-18 12:39 | SOAPPROG ---
SOAP Progress Note Assessment/Plan: Assessment: Sp clipping postop hcp resolved now with a lumbar drain. will try to start weaning it on saturday and see how he does. VPS if he does not tolerate weaning the drain on saturday or saturday. Plan: 05/18/17 12:38 05/18/17 12:40 Subjective: Doing well. Good spirits. Objective: Vital Signs Temp Pulse Resp BP Pulse Ox 36.8 C 53 L 11 L 113/76 98 05/18/17 12:00 05/18/17 12:00 05/18/17 12:00 05/18/17 12:00 05/18/17 12:00 Microbiology 05/17/17 11:00 Gram Stain - Final Cerebral Spinal Fluid 05/14/17 07:55 Gram Stain - Final Cerebral Spinal Fluid 05/15/17 16:54 Gram Stain - Final Cerebral Spinal Fluid Laboratory Results 05/17/17 04:45 05/17/17 04:45 05/17/17 05/18/17 05/19/17 05:59 05:59 05:59 Intake Total 3541 2866 Output Total 2284 220 70 Balance 1257 2646 -70 PT 13.1 SEC (12.0-15.0) 05/15/17 09:50 INR 1.00 (0.83-1.16) 05/15/17 09:50 GCS 15. Conversant and happy today. ICD10 Worksheet Patient Problems: Problems Problem Status Onset Aneurysm Acute Subarachnoid hemorrhage Acute
--- NOTE | 2017-05-18 14:32 | PCMIDPN ---
Assessment/Plan: Assessment/Plan: * Possible meningitis post aneurysmal bleed/craniotomy with clipping: CSF shows pleocytosis with growth of 1 colony of coagulase-negative Staphylococcus. Difficult to discern if this represents contaminant versus true pathogen. Given clinical circumstances, will proceed with treatment with vancomycin times 14 days. Repeat CSF shows decreasing pleocytosis. Gram stain from repeat specimen shows no organisms and is no growth to date. Will increase vancomycin 1 g IV q.8 hours based on trough findings. 05/18/17 14:29 Subjective: Patient with headache although this is improved versus prior. Objective: Vital Signs Temp Pulse Resp BP Pulse Ox 36.8 C 53 L 11 L 129/81 H 100 05/18/17 12:00 05/18/17 13:00 05/18/17 13:00 05/18/17 13:00 05/18/17 13:00 Microbiology 05/15/17 16:54 Gram Stain - Final Cerebral Spinal Fluid 05/17/17 11:00 Gram Stain - Final Cerebral Spinal Fluid 05/14/17 07:55 Gram Stain - Final Cerebral Spinal Fluid Laboratory Results 05/17/17 04:45 05/17/17 04:45 05/17/17 05/18/17 05/19/17 05:59 05:59 05:59 Intake Total 3541 2866 Output Total 2284 220 80 Balance 1257 2646 -80 Vancomycin # 3 CSF 05/15/2017 with 1 colony of Staphylococcus hominis CSF 05/17/2017 Gram stain negative, culture no growth to date Laboratory Tests 05/17/17 05/17/17 11:00 20:35 CSF WBC 403 H CSF RBC 339 H CSF Neutrophils % 58 H CSF Monos/Macrophage % 37 Vancomycin Trough 5.7 - Physical Exam General Appearance: alert, no apparent distress EENT: other (Palpable fluid inferior to the craniotomy incision with mild tenderness but no overlying erythema) Respiratory: lungs clear, No respiratory distress Cardiac/Chest: regular rate, rhythm, No systolic murmur Abdomen: non-tender, No distended ICD10 Worksheet Patient Problems: Problems Problem Status Onset Aneurysm Acute Subarachnoid hemorrhage Acute
--- NOTE | 2017-05-18 16:43 | HOSPPROG ---
Hospitalist Progress Note Assessment/Plan: Assessment: 36-year-old male presenting with acute subarachnoid hemorrhage in the setting of right MCA aneurysm and polycystic kidney disease, c/b acute hydrocephalus and possible meningitis Plan: 1. SAH. Acute, 2/2 aneurysm R MCA, s/p craniotomy and clipping of MCA 05/06 (DONOVAN removed) - Nimotop (will need 3 Weeks) for vasospasms - Keppra for seizure prophylaxis, patient would like to d/w NSGY whether this Rx will be necessary at discharge 2. Hydrocephalus. Acute, present on HCT w/ shifting, matured blood - lumbar drain placed by NSGY - d/w Dr. Gamboa, he recommends that patient continue to have drain (ongoing blood tinged output) at current rate, and that it get clamped on 05/20, then monitor for 24hrs to gauge whether headaches from hydro recur vs. stabilized, which will ultimately determine whether patient will need POST CLOSING SPECIALIST shunt on 05/21 vs. L- drain removal 3. Possible meningitis. Unclear if CSF represent overt infxn in setting of recent surgery, potentially exacerbating his headache, coag neg staph in CSF - per Dr. Marcos, Chadd single therapy, 2 weeks total - repeat CSF cx pending 4. Headaches. Acute, initially 2/2 SAH, then surg, now either hydrocephalus vs. infxn - morphine IR PO, fioricet, PRN dilaudid IV for breakthrough - counseled patient and family that he will likely continue to have low grade headache in short term and that alternating tylenol w/ morphine and slowly tapering off the morphine would be recommended 5. Polycystic kidney disease. Fam hx ESRD, has had chronic HTN, holding on lisinopril given that SBP 120-140 and on nimotop - will avoid any nephrotoxic medications - monitor Cr 6. Hyponatremia. Acute, unclear etiology, monitoring and get Madeleine if worsening Diet. Regular Prophylaxis. High risk patient, hep SC Code. Full Disposition. Anticipated discharge uncertain, pending stability of above, requiring ongoing SDU care for new L-drain Subjective: ongoing low grade headache, ambulating around room Objective: Vital Signs Temp Pulse Resp BP Pulse Ox 36.8 C 67 15 126/75 H 96 05/18/17 16:00 05/18/17 16:00 05/18/17 16:00 05/18/17 16:00 05/18/17 16:00 Microbiology 05/15/17 16:54 Gram Stain - Final Cerebral Spinal Fluid 05/17/17 11:00 Gram Stain - Final Cerebral Spinal Fluid 05/14/17 07:55 Gram Stain - Final Cerebral Spinal Fluid Laboratory Results 05/17/17 04:45 05/17/17 04:45 05/17/17 05/18/17 05/19/17 05:59 05:59 05:59 Intake Total 3541 2866 Output Total 2284 220 100 Balance 1257 2646 -100 PT 13.1 SEC (12.0-15.0) 05/15/17 09:50 INR 1.00 (0.83-1.16) 05/15/17 09:50 - Physical Exam Constitutional: no apparent distress, appears nourished, uncomfortable, No chronically ill appearing Cardiovascular: regular rate and rhythym, no murmur, rub, or gallop, No edema Respiratory: no respiratory distress, no rales or rhonchi, clear to auscultation Gastrointestinal: normoactive bowel sounds, soft, non-tender abdomen, no palpable masses, No distension Skin: other (many tattoos) Neurologic: AAOx3, sensation intact bilaterally, CN II-XII Intact, No weakness, No facial droop Psychiatric: interacting appropriately, not anxious, not encephalopathic, thought process linear ICD10 Worksheet Patient Problems: Problems Problem Status Onset Subarachnoid hemorrhage Acute Aneurysm Acute
[2017-05-18 16:49] LABS: % IMMATURE GRANULYOCYTES 0.3 % (0.0-1.1); ABSOLUTE IMMATURE GRANULOCYTES 0.02 10^3/uL (0.00-0.10); ADD DIFF? NO; ADD MORPH? NO; ADD SCAN? NO; ATYPICAL LYMPHOCYTE FLAG 10 (0-99); FRAGMENT RBC FLAG 0 (0-99); HEMATOCRIT 40.8 % (40.0-51.0); HEMOGLOBIN 14.6 g/dL (13.7-17.5); LEFT SHIFT FLG 0 (0-99); LIPEMIA HEMOLYSIS FLAG 90 (0-99); MEAN CELL HEMOGLOBIN 31.1 pg (27.9-34.1); MEAN CELL HEMOGLOBIN CONCENTR. 35.8 g/dL (32.4-36.7); MEAN PLATELET VOLUME 10.4 fL (8.7-11.7); PLATELET CLUMPS FLAG 0 (0-99); PLATELET COUNT 266 10^3/uL (150-400); RED BLOOD CELL COUNT 4.69 10^6/uL (4.40-6.38); RED CELL DISTRIBUTION WIDTH 11.4 % (11.5-15.2)
[2017-05-18 16:59] LABS: ANION GAP 9 mEq/L (8-16); CALCIUM 9.2 mg/dL (8.5-10.4); CARBON DIOXIDE 27 mEq/l (22-31); CHLORIDE 99 mEq/L (97-110); CREATININE 0.8 mg/dL (0.7-1.3); GLOMERULAR FILTRATION RATE > 60; GLUCOSE 136 mg/dL (70-100); POTASSIUM 3.9 mEq/L (3.5-5.2); SODIUM 135 mEq/L (134-144)
[2017-05-18] MEDS: VANCOMYCIN HCL/NORMAL SALINE 250 ML IV SCH (18:05)
[2017-05-19] MEDS: METHOCARBAMOL 750 MG TAB PO PRN ×2 (00:26→08:06)
[2017-05-19] MEDS: VANCOMYCIN HCL/NORMAL SALINE 250 ML IV SCH ×3 (01:03→18:36)
[2017-05-19 03:43] LABS: % IMMATURE GRANULYOCYTES 0.2 % (0.0-1.1); ABSOLUTE IMMATURE GRANULOCYTES 0.02 10^3/uL (0.00-0.10); ADD DIFF? NO; ADD MORPH? NO; ADD SCAN? NO; ATYPICAL LYMPHOCYTE FLAG 10 (0-99); FRAGMENT RBC FLAG 0 (0-99); HEMATOCRIT 40.4 % (40.0-51.0); HEMOGLOBIN 14.3 g/dL (13.7-17.5); LEFT SHIFT FLG 0 (0-99); LIPEMIA HEMOLYSIS FLAG 90 (0-99); MEAN CELL HEMOGLOBIN 31.4 pg (27.9-34.1); MEAN CELL HEMOGLOBIN CONCENTR. 35.4 g/dL (32.4-36.7); MEAN CELL VOLUME 88.8 fL (81.5-99.8); MEAN PLATELET VOLUME 10.1 fL (8.7-11.7); PLATELET CLUMPS FLAG 0 (0-99); PLATELET COUNT 253 10^3/uL (150-400); RED BLOOD CELL COUNT 4.55 10^6/uL (4.40-6.38); RED CELL DISTRIBUTION WIDTH 11.3 % (11.5-15.2)
[2017-05-19 04:05] LABS: ANION GAP 7 mEq/L (8-16); CARBON DIOXIDE 25 mEq/l (22-31); CHLORIDE 103 mEq/L (97-110); CREATININE 0.8 mg/dL (0.7-1.3); GLOMERULAR FILTRATION RATE > 60; GLUCOSE 101 mg/dL (70-100); POTASSIUM 4.2 mEq/L (3.5-5.2); SODIUM 135 mEq/L (134-144)
[2017-05-19] MEDS: HEPARIN 5,000 UNIT/0.5 ML SYR SC SCH ×2 (08:06→21:20)
[2017-05-19] MEDS: levETIRAcetam 500 MG TAB PO SCH ×2 (08:06→21:21)
[2017-05-19] MEDS: ACET/CAFFEINE/BUTA FIORICET 1 EACH TAB PO PRN ×3 (08:06→21:20)
[2017-05-19] MEDS: SENNOSIDES/DOCUSATE SODIUM TAB PO SCH ×2 (09:14→21:21)
--- NOTE | 2017-05-19 09:20 | PDINTPN ---
Residential Green Building Designer Progress Note Assessment/Plan: Assessment/plan: * Subarachnoid hemorrhage-status post craniotomy with microsurgical clipping of ruptured right middle cerebral artery * Headache-patient states improved today * Status post lumbar drain -start wean tomorrow * Possible meningitis-will need long-term antibiotics of approximately 2 weeks -PICC line * Polycystic kidney disease * Hypertension Subjective: Awake and alert. Comfortable. Headache markedly improved. Objective: Vital Signs Temp Pulse Resp BP Pulse Ox 36.6 C 65 17 120/69 97 05/19/17 07:00 05/19/17 09:00 05/19/17 09:00 05/19/17 09:00 05/19/17 09:00 Microbiology 05/15/17 16:54 Gram Stain - Final Cerebral Spinal Fluid 05/17/17 11:00 Gram Stain - Final Cerebral Spinal Fluid 05/14/17 07:55 Gram Stain - Final Cerebral Spinal Fluid Laboratory Results 05/19/17 03:35 05/19/17 03:35 05/18/17 05/19/17 05/20/17 05:59 05:59 05:59 Intake Total 2866 3184 Output Total 220 225 40 Balance 2646 2959 -40 PT 13.1 SEC (12.0-15.0) 05/15/17 09:50 INR 1.00 (0.83-1.16) 05/15/17 09:50 Physical Exam - Physical Exam General Appearance: WD/WN, alert EENT: PERRL/EOMI, normal ENT inspection, pharynx normal, TMs normal Neck: non-tender, full range of motion, supple, normal inspection Respiratory: chest non-tender, lungs clear, normal breath sounds Cardiac/Chest: normal peripheral pulses, regular rate, rhythm Peripheral Pulses: 2+: carotid (R), carotid (L), femoral (R), femoral (L), dorsalis-pedis (R), dorsalis-pedis (L) Abdomen: normal bowel sounds, non-tender, soft Male Genitalia: deferred Rectal: deferred Skin: normal color, warm/dry Extremities: normal range of motion, non-tender, normal inspection, normal capillary refill ICD10 Worksheet Patient Problems: Problems Problem Status Onset Aneurysm Acute Subarachnoid hemorrhage Acute
--- NOTE | 2017-05-19 10:40 | PCMIDPN ---
Assessment/Plan: Assessment/Plan: * Possible meningitis post aneurysmal bleed/craniotomy with clipping: CSF shows pleocytosis with growth of 1 colony of coagulase-negative Staphylococcus. Difficult to discern if this represents contaminant versus true pathogen. Given clinical circumstances, will proceed with treatment with vancomycin times 14 days. Repeat CSF shows decreasing pleocytosis and cultures negative. Continue vancomycin with anticipated 14 day course of therapy. Will reassess vancomycin trough this p.m.. 05/19/17 10:38 Subjective: Patient feels clinically improved with less headache. No rash or diarrhea. Objective: Vital Signs Temp Pulse Resp BP Pulse Ox 36.6 C 57 L 17 125/80 H 95 05/19/17 07:00 05/19/17 10:00 05/19/17 10:00 05/19/17 10:00 05/19/17 10:00 Microbiology 05/15/17 16:54 Gram Stain - Final Cerebral Spinal Fluid 05/17/17 11:00 Gram Stain - Final Cerebral Spinal Fluid 05/14/17 07:55 Gram Stain - Final Cerebral Spinal Fluid Laboratory Results 05/19/17 03:35 05/19/17 03:35 05/18/17 05/19/17 05/20/17 05:59 05:59 05:59 Intake Total 2866 3184 Output Total 220 225 50 Balance 2646 2959 -50 Vancomycin # 4 CSF 05/17/2017 no growth Subgaleal culture 05/14/17 no growth - Physical Exam General Appearance: alert, no apparent distress EENT: other (Craniotomy incision intact without erythema or drainage; mild tenderness present overlying fluid collection), No scleral icterus Respiratory: lungs clear, No respiratory distress Cardiac/Chest: regular rate, rhythm, No systolic murmur Abdomen: non-tender, No distended - Line/s RUE PICC Lines: No drainage, No erythema ICD10 Worksheet Patient Problems: Problems Problem Status Onset Aneurysm Acute Subarachnoid hemorrhage Acute
--- NOTE | 2017-05-19 11:19 | SOAPPROG ---
SOAP Progress Note Assessment/Plan: Assessment: Sp clipping postop hcp resolved now with a lumbar drain. will try to start weaning it on saturday and see how he does. VPS if he does not tolerate weaning the drain on saturday or saturday. Plan: 05/18/17 12:38 05/18/17 12:40 Subjective: Doing great this morning. Objective: Vital Signs Temp Pulse Resp BP Pulse Ox 36.6 C 55 L 11 L 128/81 H 95 05/19/17 07:00 05/19/17 11:00 05/19/17 11:00 05/19/17 11:00 05/19/17 11:00 Microbiology 05/15/17 16:54 Gram Stain - Final Cerebral Spinal Fluid 05/17/17 11:00 Gram Stain - Final Cerebral Spinal Fluid 05/14/17 07:55 Gram Stain - Final Cerebral Spinal Fluid Laboratory Results 05/19/17 03:35 05/19/17 03:35 05/18/17 05/19/17 05/20/17 05:59 05:59 05:59 Intake Total 2866 3184 Output Total 220 225 60 Balance 2646 2959 -60 PT 13.1 SEC (12.0-15.0) 05/15/17 09:50 INR 1.00 (0.83-1.16) 05/15/17 09:50 GCS 15 ICD10 Worksheet Patient Problems: Problems Problem Status Onset Aneurysm Acute Subarachnoid hemorrhage Acute
[2017-05-19] MEDS: DIAZEPAM 5 MG TAB PO PRN ×2 (13:09→21:50)
[2017-05-19] MEDS: NS W/ 20 KCl/L 1,000 ML IV SCH (13:17)
[2017-05-19] MEDS: METHOCARBAMOL 500 MG TAB PO PRN ×2 (15:25→21:20)
--- NOTE | 2017-05-19 16:12 | HOSPPROG ---
Hospitalist Progress Note Assessment/Plan: * Subarachnoid hemorrhage due to right MCA aneurysm, s/p craniotomy/clip -nimodipine for vasospasm -keppra for seizure prophylaxis * Hydrocephalus s/p lumbar drain -VPS if not able to wean drain * Possible meningitis -coag negative staph - unclear if pathogen vs. contaminant -2 weeks IV Vanco * Headache -Fioricet + Robaxin works best - will maximize dosing * PCKD -creatinine normal Subjective: c/o ongoing severe headache Objective: Vital Signs Temp Pulse Resp BP Pulse Ox 36.6 C 59 L 12 131/87 H 97 05/19/17 07:00 05/19/17 15:00 05/19/17 15:00 05/19/17 15:00 05/19/17 15:00 Microbiology 05/15/17 16:54 Gram Stain - Final Cerebral Spinal Fluid CSF Culture - Final Staphylococcus Hominis 05/17/17 11:00 Gram Stain - Final Cerebral Spinal Fluid 05/14/17 07:55 Gram Stain - Final Cerebral Spinal Fluid Laboratory Results 05/19/17 03:35 05/19/17 03:35 05/18/17 05/19/17 05/20/17 05:59 05:59 05:59 Intake Total 2866 3184 Output Total 220 225 100 Balance 2646 2959 -100 PT 13.1 SEC (12.0-15.0) 05/15/17 09:50 INR 1.00 (0.83-1.16) 05/15/17 09:50 d/w Dr. Ramírez ICU rounds - headache is main complaint last head CT - matured SAH - Physical Exam Constitutional: no apparent distress, appears nourished, not in pain Cardiovascular: regular rate and rhythym, no murmur, rub, or gallop Respiratory: no respiratory distress, no rales or rhonchi, clear to auscultation Gastrointestinal: normoactive bowel sounds, soft, non-tender abdomen, no palpable masses Skin: no rashes or abrasions, no fluctuance, no induration Neurologic: AAOx3, sensation intact bilaterally Psychiatric: interacting appropriately, not anxious, not encephalopathic, thought process linear ICD10 Worksheet Patient Problems: Problems Problem Status Onset Aneurysm Acute Subarachnoid hemorrhage Acute
[2017-05-20] MEDS: VANCOMYCIN HCL/NORMAL SALINE 250 ML IV SCH ×2 (01:53→10:07)
[2017-05-20] MEDS: DIAZEPAM 5 MG TAB PO PRN ×2 (01:53→19:42)
[2017-05-20] MEDS: ACET/CAFFEINE/BUTA FIORICET 1 EACH TAB PO PRN ×3 (05:39→15:58)
[2017-05-20] MEDS: METHOCARBAMOL 500 MG TAB PO PRN ×2 (05:39→17:27)
[2017-05-20] MEDS: HEPARIN 5,000 UNIT/0.5 ML SYR SC SCH ×2 (08:45→21:47)
[2017-05-20] MEDS: levETIRAcetam 500 MG TAB PO SCH ×2 (08:46→21:48)
[2017-05-20] MEDS: SENNOSIDES/DOCUSATE SODIUM TAB PO SCH ×2 (08:48→22:13)
--- NOTE | 2017-05-20 09:08 | SOAPPROG ---
SOAP Progress Note Assessment/Plan: Assessment/plan: * Subarachnoid hemorrhage-status post craniotomy with microsurgical clipping of ruptured right middle cerebral artery * Headache-patient states improved today * Status post lumbar drain -clamped since earlier this morning. Headaches are unchanged * Possible meningitis-will need long-term antibiotics of approximately 2 weeks -PICC line * Polycystic kidney disease * Hypertension Subjective: Resting comfortably. Headache is minimal. There is no nausea or vomiting. Objective: Vital Signs Temp Pulse Resp BP Pulse Ox 36.6 C 61 13 122/77 H 98 05/20/17 08:00 05/20/17 08:00 05/20/17 08:00 05/20/17 08:00 05/20/17 08:00 Microbiology 05/15/17 16:54 Gram Stain - Final Cerebral Spinal Fluid CSF Culture - Final Staphylococcus Hominis 05/17/17 11:00 Gram Stain - Final Cerebral Spinal Fluid 05/14/17 07:55 Gram Stain - Final Cerebral Spinal Fluid Laboratory Results 05/19/17 03:35 05/19/17 03:35 05/19/17 05/20/17 05/21/17 05:59 05:59 05:59 Intake Total 3184 51383 Output Total 225 220 Balance 2959 52558 PT 13.1 SEC (12.0-15.0) 05/15/17 09:50 INR 1.00 (0.83-1.16) 05/15/17 09:50 Physical Exam - Physical Exam General Appearance: WD/WN, alert, no apparent distress EENT: PERRL/EOMI Neck: non-tender, full range of motion, supple, normal inspection Respiratory: chest non-tender, lungs clear, normal breath sounds Cardiac/Chest: normal peripheral pulses, regular rate, rhythm Peripheral Pulses: 2+: carotid (R), carotid (L), femoral (R), femoral (L), dorsalis-pedis (R), dorsalis-pedis (L) Abdomen: normal bowel sounds, non-tender, soft Male Genitalia: deferred Rectal: deferred Back: Normal inspection Skin: normal color, warm/dry Lymphatic: no adenopathy Extremities: normal range of motion, non-tender, normal inspection, normal capillary refill Neuro/Psych: no motor/sensory deficits, alert, normal mood/affect, oriented x 3 ICD10 Worksheet Patient Problems: Problems Problem Status Onset Aneurysm Acute Subarachnoid hemorrhage Acute
--- NOTE | 2017-05-20 10:18 | SOAPPROG ---
SOAP Progress Note Assessment/Plan: Assessment: Sp clipping postop hcp resolved now with a lumbar drain. will try to start weaning it on saturday and see how he does. VPS if he does not tolerate weaning the drain on saturday or saturday. we clamped the drain today and will see how he does. Plan: 05/18/17 12:38 05/18/17 12:40 05/20/17 10:18 Subjective: Doing well. Objective: Vital Signs Temp Pulse Resp BP Pulse Ox 36.6 C 61 13 122/77 H 98 05/20/17 08:00 05/20/17 08:00 05/20/17 08:00 05/20/17 08:00 05/20/17 08:00 Microbiology 05/14/17 07:55 Gram Stain - Final Cerebral Spinal Fluid 05/17/17 11:00 Gram Stain - Final Cerebral Spinal Fluid 05/15/17 16:54 Gram Stain - Final Cerebral Spinal Fluid CSF Culture - Final Staphylococcus Hominis Laboratory Results 05/19/17 03:35 05/19/17 03:35 05/19/17 05/20/17 05/21/17 05:59 05:59 05:59 Intake Total 3184 67456 Output Total 225 220 Balance 2959 96277 PT 13.1 SEC (12.0-15.0) 05/15/17 09:50 INR 1.00 (0.83-1.16) 05/15/17 09:50 GCS 15 ICD10 Worksheet Patient Problems: Problems Problem Status Onset Aneurysm Acute Subarachnoid hemorrhage Acute
--- NOTE | 2017-05-20 10:44 | PCMIDPN ---
Assessment/Plan: Assessment/Plan: * Possible meningitis post aneurysmal bleed/craniotomy with clipping: CSF shows pleocytosis with growth of 1 colony of coagulase-negative Staphylococcus. Difficult to discern if this represents contaminant versus true pathogen. Repeat CSF cultures are no growth. Plan 14 days of vancomycin, currently day # 5/14. Will continue with current vancomycin dose as expect he will continue to accumulate and clinically has shown improvement. 05/20/17 10:42 Subjective: Patient feels better. Headache present but decreased. Plans for clamping of lumbar drain today to see how tolerates. Objective: Vital Signs Temp Pulse Resp BP Pulse Ox 36.6 C 60 14 123/71 H 96 05/20/17 08:00 05/20/17 10:00 05/20/17 10:00 05/20/17 10:00 05/20/17 10:00 Microbiology 05/14/17 07:55 Gram Stain - Final Cerebral Spinal Fluid 05/17/17 11:00 Gram Stain - Final Cerebral Spinal Fluid 05/15/17 16:54 Gram Stain - Final Cerebral Spinal Fluid CSF Culture - Final Staphylococcus Hominis Laboratory Results 05/19/17 03:35 05/19/17 03:35 05/19/17 05/20/17 05/21/17 05:59 05:59 05:59 Intake Total 3184 21221 Output Total 225 220 Balance 2959 27478 Vancomycin # 5/ Laboratory Tests 05/19/17 17:10 Vancomycin Trough 8.1 - Physical Exam General Appearance: alert, no apparent distress EENT: other (Minimal tenderness inferior to craniotomy incision; no erythema or drainage; palpable fluid without interval change), No scleral icterus Respiratory: lungs clear, No respiratory distress Cardiac/Chest: regular rate, rhythm, No systolic murmur Back: other (Lumbar drain in place with overlying patch present) ICD10 Worksheet Patient Problems: Problems Problem Status Onset Aneurysm Acute Subarachnoid hemorrhage Acute
[2017-05-20] MEDS: NAFCILLIN SODIUM 2 GM in D5W 100 ML IV SCH ×3 (12:13→21:47)
[2017-05-20] MEDS: HYDROmorphONE/DILAUDID 1 MG/ML SYR IVP PRN ×2 (13:11→19:49)
--- NOTE | 2017-05-20 16:32 | HOSPPROG ---
Hospitalist Progress Note Assessment/Plan: * Subarachnoid hemorrhage due to right MCA aneurysm, s/p craniotomy/clip -nimodipine for vasospasm -keppra for seizure prophylaxis * Hydrocephalus s/p lumbar drain -VPS if not able to wean drain * Possible meningitis -coag negative staph - unclear if pathogen vs. contaminant -2 weeks IV Vanco * Headache -Fioricet + Robaxin works best - will maximize dosing * PCKD -creatinine normal Subjective: Still with headache - not worse Objective: Vital Signs Temp Pulse Resp BP Pulse Ox 36.7 C 68 15 119/80 99 05/20/17 16:00 05/20/17 16:00 05/20/17 16:00 05/20/17 16:00 05/20/17 16:00 Microbiology 05/15/17 16:54 Gram Stain - Final Cerebral Spinal Fluid CSF Culture - Final Staphylococcus Hominis 05/14/17 07:55 Gram Stain - Final Cerebral Spinal Fluid 05/17/17 11:00 Gram Stain - Final Cerebral Spinal Fluid Laboratory Results 05/19/17 03:35 05/19/17 03:35 05/19/17 05/20/17 05/21/17 05:59 05:59 05:59 Intake Total 3184 69479 Output Total 225 220 Balance 2959 48713 PT 13.1 SEC (12.0-15.0) 05/15/17 09:50 INR 1.00 (0.83-1.16) 05/15/17 09:50 - Physical Exam Constitutional: no apparent distress, appears nourished, not in pain Cardiovascular: regular rate and rhythym, no murmur, rub, or gallop Respiratory: no respiratory distress, no rales or rhonchi, clear to auscultation Gastrointestinal: normoactive bowel sounds, soft, non-tender abdomen, no palpable masses Skin: no rashes or abrasions, no fluctuance, no induration Neurologic: AAOx3, sensation intact bilaterally Psychiatric: interacting appropriately, not anxious, not encephalopathic, thought process linear ICD10 Worksheet Patient Problems: Problems Problem Status Onset Aneurysm Acute Subarachnoid hemorrhage Acute
[2017-05-20] MEDS ORDERED: diphenhydrAMINE 25 MG CAP PO PRN (16:49)
[2017-05-21] MEDS: NAFCILLIN SODIUM 2 GM in D5W 100 ML IV SCH ×6 (01:48→22:28)
[2017-05-21] MEDS: DIAZEPAM 5 MG TAB PO PRN ×3 (03:14→18:07)
[2017-05-21] MEDS: HEPARIN 5,000 UNIT/0.5 ML SYR SC SCH ×2 (07:43→22:28)
[2017-05-21 08:00] LABS: % IMMATURE GRANULYOCYTES 0.3 % (0.0-1.1); ABSOLUTE IMMATURE GRANULOCYTES 0.03 10^3/uL (0.00-0.10); ADD DIFF? NO; ADD MORPH? NO; ADD SCAN? NO; ATYPICAL LYMPHOCYTE FLAG 0 (0-99); FRAGMENT RBC FLAG 0 (0-99); HEMATOCRIT 41.1 % (40.0-51.0); HEMOGLOBIN 14.6 g/dL (13.7-17.5); LEFT SHIFT FLG 0 (0-99); LIPEMIA HEMOLYSIS FLAG 90 (0-99); MEAN CELL HEMOGLOBIN 31.1 pg (27.9-34.1); MEAN CELL HEMOGLOBIN CONCENTR. 35.5 g/dL (32.4-36.7); MEAN CELL VOLUME 87.4 fL (81.5-99.8); MEAN PLATELET VOLUME 9.9 fL (8.7-11.7); PLATELET CLUMPS FLAG 0 (0-99); PLATELET COUNT 105 10^3/uL (150-400); RED CELL DISTRIBUTION WIDTH 11.4 % (11.5-15.2)
[2017-05-21 08:16] LABS: ALANINE AMINOTRANSFERASE 69 IU/L (21-72); ALBUMIN 3.5 g/dL (3.5-5.0); ALKALINE PHOSPHATASE 76 IU/L (38-126); ANION GAP 10 mEq/L (8-16); ASPARTATE AMINOTRANSFERASE 24 IU/L (17-59); BILIRUBIN,TOTAL 0.8 mg/dL (0.1-1.4); CALCIUM 9.3 mg/dL (8.5-10.4); CARBON DIOXIDE 26 mEq/l (22-31); CHLORIDE 101 mEq/L (97-110); CREATININE 0.9 mg/dL (0.7-1.3); GLOMERULAR FILTRATION RATE > 60; GLUCOSE 96 mg/dL (70-100); POTASSIUM 4.4 mEq/L (3.5-5.2); SODIUM 137 mEq/L (134-144); TOTAL PROTEIN 6.4 g/dL (6.3-8.2)
[2017-05-21] MEDS: SENNOSIDES/DOCUSATE SODIUM TAB PO SCH ×2 (08:28→21:25)
--- NOTE | 2017-05-21 08:28 | PCMIDPN ---
Assessment/Plan: Assessment/Plan: 1. Possible meningitis post aneurysmal bleed/craniotomy with clipping: - CSF Cx with Staph hominis in association with CSf pleocytosis. - Previously on Vanco, now on Nafcillin with plans to treat for tentative total 14 days. On D#6/14 -wbc elevated -Platelets lower today. Nafcillin related vs other. Recheck in Am. -for Ct scan, will follow -s/p picc line. Eventually when ready for discharge can covert Nafcillin to continuous infusion if labs/patient stable on this regimen -Creatinine/LFT stable. Meds Nafcillin 2g q4- 05/20/17 Subjective: Remains in icu. Afebrile. c/o ongoing mild headache, no worse than past few days , but still present. present mostly over frontal region, around eyes. Denies sob , abd pain or diarrhea. Objective: Vital Signs Temp Pulse Resp BP Pulse Ox 36.2 C 53 L 18 115/61 98 05/21/17 08:00 05/21/17 08:00 05/21/17 08:00 05/21/17 08:00 05/21/17 08:00 Microbiology 05/15/17 16:54 Gram Stain - Final Cerebral Spinal Fluid CSF Culture - Final Staphylococcus Hominis 05/14/17 07:55 Gram Stain - Final Cerebral Spinal Fluid 05/17/17 11:00 Gram Stain - Final Cerebral Spinal Fluid Laboratory Results 05/21/17 07:52 05/21/17 07:52 05/20/17 05/21/17 05/22/17 05:59 05:59 05:59 Intake Total 80914 1098 Output Total 220 Balance 55640 1098 - Physical Exam General Appearance: alert, no apparent distress Respiratory: lungs clear Cardiac/Chest: regular rate, rhythm Extremities: No swelling Abdomen: normal bowel sounds, non-tender, soft, No distended Back: other (lumbar drain noted) ICD10 Worksheet Patient Problems: Problems Problem Status Onset Aneurysm Acute Subarachnoid hemorrhage Acute
[2017-05-21] MEDS: ACET/CAFFEINE/BUTA FIORICET 1 EACH TAB PO PRN ×3 (08:29→20:31)
[2017-05-21] MEDS: levETIRAcetam 500 MG TAB PO SCH ×2 (08:29→21:24)
--- NOTE | 2017-05-21 08:35 | NEUSURGPN ---
Assessment/Plan: Assessment: 37 yo M status post craniotomy for clip ligation of right MCA aneurysm and s/p LD placement for hydrocephalus Plan: - neuro stable - continued clamping of lumbar drain this morning. Will obtain HCT to eval hydrocephalus. If okay may d/c LD later today. Heparin being held in anticipation - appreciate ID following, on Nafcillin. - continue to follow Na, improved this morning at 137 - continue Keppra - PT/OT/ST - call with any neuro changes Patient seen by Dr. Baeza as well this morning Subjective: Denies any headache, nausea, dizziness Objective: NAD A&Ox3 CN II-XII grossly intact. MAEx4 5/5 and equal in BUE and BLE - Physician Patient Seen by : [facility] Physical Exam - Vitals, I&O, Labs I and O 05/20/17 05/21/17 05/22/17 05:59 05:59 05:59 Intake Total 87982 1098 Output Total 220 Balance 36511 1098 Intake: Oral (ml) 10894 400 IV Intake (ml) 450 IV Infused (ml) 1056 698 NS W/ 20 KCl/L 1,000 ml @ 1056 698 100 mls/hr IV CONT NICKOLAS Rx#:[id number] Output: CSF Drainage Amount 220 Lumbar Drain 220 Other: Intake Quantity Yes Sufficient Number of Voids Toilet 4 2 Number of Stools Urinal 1 Microbiology 05/15/17 16:54 Gram Stain - Final Cerebral Spinal Fluid CSF Culture - Final Staphylococcus Hominis 05/14/17 07:55 Gram Stain - Final Cerebral Spinal Fluid 05/17/17 11:00 Gram Stain - Final Cerebral Spinal Fluid Vital Signs Temp Pulse Resp BP Pulse Ox 36.2 C 53 L 18 115/61 98 05/21/17 08:00 05/21/17 08:00 05/21/17 08:00 05/21/17 08:00 05/21/17 08:00 Laboratory Results 05/21/17 07:52 05/21/17 07:52 ICD10 Worksheet Patient Problems: Problems Problem Status Onset Aneurysm Acute Subarachnoid hemorrhage Acute
[2017-05-21 14:55] VITALS: PULSE 62
--- NOTE | 2017-05-21 15:14 | PDINTPN ---
Package Checker Progress Note Assessment/Plan: Assessment/plan: 37 M s/p SAH requiring clipping of right MCA, complicated by possible meningitis. * SAH- repeat CT today with improvement so drain dc'd. Likely dc in AM * meningitis- IV abx per ID * * Subjective: feels OK. Headache controlled. Lumbar drain dc'd. Objective: Vital Signs Temp Pulse Resp BP Pulse Ox 36.2 C 62 15 112/84 H 99 05/21/17 12:00 05/21/17 14:54 05/21/17 14:54 05/21/17 14:54 05/21/17 14:54 Microbiology 05/17/17 11:00 Gram Stain - Final Cerebral Spinal Fluid 05/14/17 07:55 Gram Stain - Final Cerebral Spinal Fluid 05/15/17 16:54 Gram Stain - Final Cerebral Spinal Fluid CSF Culture - Final Staphylococcus Hominis Laboratory Results 05/21/17 07:52 05/21/17 07:52 05/20/17 05/21/17 05/22/17 05:59 05:59 05:59 Intake Total 13676 1098 850 Output Total 220 Balance 66154 1098 850 PT 13.1 SEC (12.0-15.0) 05/15/17 09:50 INR 1.00 (0.83-1.16) 05/15/17 09:50 Physical Exam - Physical Exam General Appearance: WD/WN, alert, no apparent distress EENT: PERRL/EOMI Neck: supple Respiratory: lungs clear, normal breath sounds, No respiratory distress Cardiac/Chest: normal peripheral pulses, regular rate, rhythm, No edema Abdomen: non-tender, soft, No distended Skin: normal color, warm/dry Lymphatic: no adenopathy Extremities: No pedal edema Neuro/Psych: alert, normal mood/affect, oriented x 3 ICD10 Worksheet Patient Problems: Problems Problem Status Onset Aneurysm Acute Subarachnoid hemorrhage Acute
--- NOTE | 2017-05-21 17:15 | HOSPPROG ---
Hospitalist Progress Note Assessment/Plan: * Subarachnoid hemorrhage due to right MCA aneurysm, s/p craniotomy/clip -keppra for seizure prophylaxis * Hydrocephalus s/p lumbar drain - drain now out * Possible meningitis -staph hominis- unclear if pathogen vs. contaminant -2 weeks IV Nafcillin * Headache -Fioricet + Robaxin * PCKD -creatinine normal Subjective: No new complaints. Objective: Vital Signs Temp Pulse Resp BP Pulse Ox 36.2 C 62 15 112/84 H 99 05/21/17 12:00 05/21/17 14:54 05/21/17 14:54 05/21/17 14:54 05/21/17 14:54 Microbiology 05/17/17 11:00 Gram Stain - Final Cerebral Spinal Fluid 05/14/17 07:55 Gram Stain - Final Cerebral Spinal Fluid 05/15/17 16:54 Gram Stain - Final Cerebral Spinal Fluid CSF Culture - Final Staphylococcus Hominis Laboratory Results 05/21/17 07:52 05/21/17 07:52 05/20/17 05/21/17 05/22/17 05:59 05:59 05:59 Intake Total 42334 1098 850 Output Total 220 Balance 06229 1098 850 PT 13.1 SEC (12.0-15.0) 05/15/17 09:50 INR 1.00 (0.83-1.16) 05/15/17 09:[address] - s/p clip MCA aneurysm d/w Dr. Richard ICU rounds - doing well, possible home tomorrow - Physical Exam Constitutional: no apparent distress, appears nourished, not in pain Cardiovascular: regular rate and rhythym, no murmur, rub, or gallop Respiratory: no respiratory distress, no rales or rhonchi, clear to auscultation Gastrointestinal: normoactive bowel sounds, soft, non-tender abdomen, no palpable masses Skin: no rashes or abrasions, no fluctuance, no induration Neurologic: AAOx3, sensation intact bilaterally Psychiatric: interacting appropriately, not anxious, not encephalopathic, thought process linear ICD10 Worksheet Patient Problems: Problems Problem Status Onset Aneurysm Acute Subarachnoid hemorrhage Acute
[2017-05-21] MEDS: HYDROmorphONE/DILAUDID 1 MG/ML SYR IVP PRN ×2 (17:34→21:26)
--- NOTE | 2017-05-21 17:54 | ASMTCMCOM ---
CM Note CM Note Notes: Patient to have a head CT Scan and drain may be pulled. Possible discharge Saturday with IV ABX. Date Signed: 05/21/2017 05:54 PM Electronically Signed By:Katie Penaloza
[2017-05-21] MEDS: METHOCARBAMOL 500 MG TAB PO PRN (20:30)
[2017-05-22 06:04] LABS: % IMMATURE GRANULYOCYTES 0.3 % (0.0-1.1); ABSOLUTE IMMATURE GRANULOCYTES 0.02 10^3/uL (0.00-0.10); ADD DIFF? NO; ADD MORPH? NO; ADD SCAN? NO; ATYPICAL LYMPHOCYTE FLAG 0 (0-99); FRAGMENT RBC FLAG 0 (0-99); HEMATOCRIT 39.7 % (40.0-51.0); LEFT SHIFT FLG 0 (0-99); LIPEMIA HEMOLYSIS FLAG 90 (0-99); MEAN CELL HEMOGLOBIN 31.6 pg (27.9-34.1); MEAN CELL HEMOGLOBIN CONCENTR. 35.3 g/dL (32.4-36.7); MEAN CELL VOLUME 89.6 fL (81.5-99.8); MEAN PLATELET VOLUME 10.1 fL (8.7-11.7); PLATELET CLUMPS FLAG 50 (0-99); PLATELET COUNT 207 10^3/uL (150-400); RED BLOOD CELL COUNT 4.43 10^6/uL (4.40-6.38); RED CELL DISTRIBUTION WIDTH 11.5 % (11.5-15.2)
[2017-05-22 06:26] LABS: ANION GAP 9 mEq/L (8-16); CARBON DIOXIDE 26 mEq/l (22-31); CHLORIDE 101 mEq/L (97-110); CREATININE 0.9 mg/dL (0.7-1.3); GLOMERULAR FILTRATION RATE > 60; GLUCOSE 116 mg/dL (70-100); POTASSIUM 3.9 mEq/L (3.5-5.2); SODIUM 136 mEq/L (134-144)
[2017-05-22] MEDS: NAFCILLIN SODIUM 2 GM in D5W 100 ML IV SCH ×4 (07:32→13:39)
[2017-05-22 07:55] VITALS: BP 108/75; RESP 18; TEMP 98.6; O2SAT 100
--- NOTE | 2017-05-22 08:08 | SOAPPROG ---
SOAP Progress Note Assessment/Plan: Assessment/Plan: Assessment: 37 yo M status post craniotomy for clip ligation of right MCA aneurysm and s/p LD placement for hydrocephalus Plan: - neuro stable - appreciate ID following, on Nafcillin. - continue to follow Na, improved this morning at 137 - continue Keppra -DC home today -D/W Dr. Baeza Objective: NAD A&Ox3 CN II-XII grossly intact. MAEx4 5/5 and equal in BUE and BLE Subjective: lying in bed, feeling good overall. Mild PRICE that resolves when he gets up and moves around. Denies focal motor issues. Objective: Vital Signs Temp Pulse Resp BP Pulse Ox 37.0 C 62 18 108/75 100 05/22/17 07:53 05/22/17 07:53 05/22/17 07:53 05/22/17 07:53 05/22/17 07:53 Microbiology 05/17/17 11:00 Gram Stain - Final Cerebral Spinal Fluid 05/14/17 07:55 Gram Stain - Final Cerebral Spinal Fluid Laboratory Results 05/22/17 05:50 05/22/17 05:50 05/21/17 05/22/17 05/23/17 05:59 05:59 05:59 Intake Total 1098 850 Balance 1098 850 PT 13.1 SEC (12.0-15.0) 05/15/17 09:50 INR 1.00 (0.83-1.16) 05/15/17 09:50 ICD10 Worksheet Patient Problems: Problems Problem Status Onset Aneurysm Acute Subarachnoid hemorrhage Acute
[2017-05-22] MEDS: levETIRAcetam 500 MG TAB PO SCH (08:59)
[2017-05-22] MEDS: SENNOSIDES/DOCUSATE SODIUM TAB PO SCH (08:59)
[2017-05-22] MEDS: HEPARIN 5,000 UNIT/0.5 ML SYR SC SCH (09:00)
--- NOTE | 2017-05-22 12:12 | PDIAF ---
- Diagnosis Diagnosis: Meningitis Code Status: Full Code - Medication Management Discharge Medications: Medications to Continue on Transfer Acet/Caffeine/Buta Fioricet [Fioricet (*)] 1 - 2 each PO Q4 PRN #60 tab [Last Taken Unknown] Acet/Caffeine/Buta Fioricet [Fioricet (*)] 1 each PO Q6 #60 tab 05/22/17 [Last Taken Unknown] levETIRAcetam [Keppra 500 mg (*)] 750 mg PO BID #90 tab 05/22/17 [Last Taken Unknown] Mcfp Antibiotics: Nafcillin 12 g q24 by continous infusion Financial Consultant Antibiotic Stop Date: 05/29/17 Discharge Medications: Refer to the Discharge Home Medication list for PRN reason. PICC Care - Routine: Yes - Orders Services needed: Home Skilled Nursing Care Face to Face: I certify that this patient was under my care and that I had the required [id number] encounter meeting the encounter requirements on the discharge day. My findings support the fact that the patient is homebound as defined in CMS Chapter 7 Medicare Benefits Manual 30.1.1, The condition of the patient is such that there exists a normal inability to leave home and consequently, leaving home would require a considerable and taxing effort. Diet Recommendation: no restrictions on diet Diet Texture: Regular Texture Diet - Labs/Radiology CBC Date: 05/26/17 CMP Date: 05/26/17 Call or Fax Lab and Imaging Results to: Dr. Marcos [phone] - Follow Up Care Current Providers and Referrals: [facility] [Other] - As per Instructions Mulugeta Marcos MD [Medical Doctor] - 05/28/17 11:00 am
--- NOTE | 2017-05-22 14:17 | HOSPPROG ---
Hospitalist Progress Note Assessment/Plan: * Subarachnoid hemorrhage due to right MCA aneurysm, s/p craniotomy/clip -keppra for seizure prophylaxis -Ok for discharge per NS notes this a.m. * Hydrocephalus s/p lumbar drain - drain now out * Possible meningitis -staph hominis- unclear if pathogen vs. contaminant -2 weeks IV Nafcillin. Tentative stop date is 05/29. -PICC in place * Headache -Fioricet + Robaxin * PCKD -creatinine normal plan: -abx through 05/29 -f/u with ID -F/u with Neurosurger -discharge per neurosurgery Subjective: Feels better. Wants to discharge Objective: Vital Signs Temp Pulse Resp BP Pulse Ox 37.0 C 62 18 108/75 100 05/22/17 07:53 05/22/17 07:53 05/22/17 07:53 05/22/17 07:53 05/22/17 07:53 Microbiology 05/14/17 07:55 Gram Stain - Final Cerebral Spinal Fluid 05/17/17 11:00 Gram Stain - Final Cerebral Spinal Fluid Laboratory Results 05/22/17 05:50 05/22/17 05:50 05/21/17 05/22/17 05/23/17 05:59 05:59 05:59 Intake Total 1098 850 Balance 1098 850 PT 13.1 SEC (12.0-15.0) 05/15/17 09:50 INR 1.00 (0.83-1.16) 05/15/17 09:50 - Physical Exam Constitutional: no apparent distress, appears nourished, not in pain Eyes: PERRL, anicteric sclera, EOMI Ears, Nose, Mouth, Throat: moist mucous membranes Cardiovascular: regular rate and rhythym, no murmur, rub, or gallop Respiratory: no respiratory distress, clear to auscultation Gastrointestinal: normoactive bowel sounds, soft, non-tender abdomen Skin: warm Neurologic: AAOx3 Psychiatric: interacting appropriately, not anxious, not encephalopathic ICD10 Worksheet Patient Problems: Problems Problem Status Onset Aneurysm Acute Subarachnoid hemorrhage Acute
--- NOTE | 2017-05-22 14:20 | PCMIDPN ---
Assessment/Plan: Assessment/Plan: * Possible meningitis post aneurysmal bleed/craniotomy with clipping: CSF shows pleocytosis with growth of 1 colony of Staphylococcus hominis. Difficult to discern if this represents contaminant versus true pathogen. Repeat CSF cultures are no growth. Will continue 14 days total of antibiotic therapy as previously outlined. Now on nafcillin since Staphylococcus hominis is beta- lactam susceptible. Has completed 7/14 days of treatment. Plan to administer nafcillin by continuous infusion at home. Okay for discharge from ID perspective with follow-up in my office next week. Side effects of nafcillin discussed with patient today. 05/22/17 14:18 Subjective: Patient with mild headache but overall feels significantly improved and eager to go home. Lumbar drain now removed. Objective: Vital Signs Temp Pulse Resp BP Pulse Ox 37.0 C 62 18 108/75 100 05/22/17 07:53 05/22/17 07:53 05/22/17 07:53 05/22/17 07:53 05/22/17 07:53 Microbiology 05/14/17 07:55 Gram Stain - Final Cerebral Spinal Fluid 05/17/17 11:00 Gram Stain - Final Cerebral Spinal Fluid Laboratory Results 05/22/17 05:50 05/22/17 05:50 05/21/17 05/22/17 05/23/17 05:59 05:59 05:59 Intake Total 1098 850 Balance 1098 850 Nafcillin # 2 (antibiotics # 03/29) - Physical Exam General Appearance: alert, no apparent distress EENT: other (Incision intact without erythema or drainage; palpable fluid slightly less prominent inferiorly) Abdomen: non-tender, No distended - Line/s RUE PICC Lines: No drainage, No erythema ICD10 Worksheet Patient Problems: Problems Problem Status Onset Aneurysm Acute Subarachnoid hemorrhage Acute
--- NOTE | 2017-05-26 17:04 | ASMTCMCOM ---
CM Note CM Note Notes: Contacted [facility] re: patient d/c need for IV ABX Nafcillin 12g by continous infusion for 7 days post d/c. [facility] will meet patient at his house at 6:00 PM (18:00) for his next scheduled dose. Patient will get a 2:00 (14:00) dose here at the hospital and will d/c after it is complete. D/C summaries, orders and picc line verification faxed to Marzena with [facility]. Patient's address was confirmed for the scheduled visit this evening. Patient was given information needed in case he has any billing questions. Date Signed: 05/22/2017 02:27 PM Electronically Signed By:Anisha Guevara
== END 2017-05-22 14:37 | disposition home or self-care (01) | DRG 23 ==
LOC: CED 08:33 → CEDHOLD 09:53 → F2N 11:17 → F3N 05-14 11:46 → F2N 05-15 22:00
PROVIDERS: ADMIT Internal Medicine; ATTEND Internal Medicine
PROC: 009 Central Nervous System and Cranial Nerves, Drainage (ICD-10-PCS; principal; 2017-05-15)
PROC: 03L00CZ Occlusion of Right Internal Mammary Artery with Extraluminal Device, Open Approach (ICD-10-PCS; principal; 2017-05-15)
PROC: 009U3ZX Drainage of Spinal Canal, Percutaneous Approach, Diagnostic (ICD-10-PCS; 2017-05-15)
PROC: 009U30Z Drainage of Spinal Canal with Drainage Device, Percutaneous Approach (ICD-10-PCS; 2017-05-15)
PROC: 02HV33Z Insertion of Infusion Device into Superior Vena Cava, Percutaneous Approach (ICD-10-PCS; 2017-05-18)
DX: I60.11 Nontraumatic subarachnoid hemorrhage from right middle cerebral artery (principal); G00.3 Staphylococcal meningitis; B95.7 Other staphylococcus as the cause of diseases classified elsewhere; E87.1 Hypo-osmolality and hyponatremia; G91.8 Other hydrocephalus; Z87.891 Personal history of nicotine dependence; F17.220 Nicotine dependence, chewing tobacco, uncomplicated; K21.9 Gastro-esophageal reflux disease without esophagitis; Q61.3 Polycystic kidney, unspecified; I10 Essential (primary) hypertension
CPT/HCPCS: 70450-PO; 70496-PO; 80048-PO; 82947-QW; 85025-PO; 85610-PO; 85730-PO; 92507-GN; 92523-GN; 96374; 97161-GP; 97165-GO; 97535-GO; C1713; C1751; C1769; C1894; J0690; J0692; J1100; J1170; J1200; J1644; J1953; J2250; J2370; J2405; J2440; J2550; J2704; J2780; J2997; J3010; J3370; Q9967